=== PATIENT | female | born 1995 | race African-American/Black ===

== ENCOUNTER 2024-06-30 14:40 | Inpatient (IN) | payer OTHER, SELFPAY ==
[2024-06-30 15:04] VITALS: BP 132/80; PULSE 58; RESP 16; TEMP 36.8; O2SAT 100; BMI 28.3
[2024-06-30 15:25] LABS: MANUAL DIFF FLAG NO
[2024-06-30 15:26] LABS: Basophils Percent Auto 0.6 % (0-2); Eosinophils Absolute Auto 0.1 X10*3/uL (0.0-0.4); Eosinophils Percent Auto 1.4 % (0-4); Hemoglobin 12.3 g/dl (12.0-16.0); Lymphocytes Absolute Auto 2.7 X10*3/uL (1.2-4.9); Mean Corpuscular HGB Conc 33.2 g/dl (31.0-35.0); Mean Corpuscular Hemoglobin 31.8 pg (27.0-33.0); Mean Corpuscular Volume 95.6 fL (80.0-98.0); Mean Platelet Volume 9.7 fL (9.4-12.3); Monocytes Absolute Auto 0.4 X10*3/uL (0.1-1.2); Monocytes Percent Auto 7.7 % (2-11); Neutrophils Absolute Auto 1.7 x10*3/uL (2.0-8.3); Neutrophils Percent Auto 35.3 % (45-73); Platelet Count 184 X10*3/uL (160-400); Red Blood Count 3.87 X10*6/uL (4.20-5.50); Red Cell Distribution Width 11.9 % (11.0-16.0); White Blood Count 4.9 X10*3/uL (4.8-10.8)
[2024-06-30 16:04] LABS: Alanine Aminotransferase 19 U/L (0-31); Albumin Level 3.7 g/dL (3.5-5.0); Anion Gap 10 (12-20); Aspartate Amino Transferase 23 U/L (5-31); Bilirubin Total 0.2 mg/dL (0.0-1.0); Blood Urea Nitrogen 11 mg/dL (9-16); Calcium 8.9 mg/dL (8.4-10.2); Carbon Dioxide 24 mmol/L (22-29); Chloride 109 mmol/L (96-108); Estimated Glomerular Filt Rate > 60; Ethanol < 10 mg/dL; Glucose Random 91 mg/dL (60-115); Potassium 4.4 mmol/L (3.3-5.1); Sodium 139 mmol/L (135-145); Total Protein 6.9 g/dL (6.5-8.0)
[2024-06-30 17:19] VITALS: BP 124/75; PULSE 54; RESP 16; TEMP 37.3; O2SAT 98
[2024-06-30 17:22] LABS: Alkaline Phosphatase 47 U/L (39-117)
--- NOTE | 2024-06-30 18:12 | ED_ITS ---
HPI - Psych General Chief Complaint: Psychiatric Symptoms Stated Complaint: SI w/ plan per ems Time Seen by Provider: 06/30/24 15:52 Source: patient and EMS Mode of arrival: EMS Limitations: no limitations History of Present Illness ED Provider: Dr. Tawana Mccarty HPI Narrative: Patient comes to the emergency room complaining of suicidal ideation. Patient was picked up from work a primary care of his. According to the patient she has had increase in major depression and now she has suicidal thoughts. Patient states that she would jump off a bridge or OD on her medications. Patient states that she is compliant with her medications so far. Denies HI Related Data Home Medications ?Medication ?Instructions ?Recorded ?Confirmed escitalopram oxalate 10 mg tablet 15 mg PO DAILY 06/30/24 07/01/24 (Lexapro) hydroxyzine HCl 10 mg tablet 25 mg PO TID PRN Anxiety 06/30/24 06/30/24 Allergies Allergy/AdvReac Type Severity Reaction Status Date / Time No Known Allergies Allergy Verified 06/30/24 15:06 Review of Systems 2 Review of Systems: Constitutional : No Weight loss, No Fever, No Chills, No Night Sweats, No Fatigue, No Malaise ENT/Mouth : No Hearing loss, No Ear Pain, No Nasal Congestion, No Sinus Pain, No Hoarseness, No sore throat, No Rhinorrhea, No Swallowing Difficulty Eyes: No Eye Pain, No Swelling, No Redness, No Foreign Body, No Discharge, No Vision Changes Cardiovascular : No Chest Pain, No SOB, No Dyspnea on Exertion, No Orthopnea, No Edema, No Palpitations Respiratory : No Cough, No Sputum, No Wheezing, No Smoke Exposure, No Dyspnea Gastrointestinal : No Nausea, No Vomiting, No Diarrhea, No Constipation, No abdominal Pain, No Hematochezia, No Melena Genitourinary : no irregular bleeding, No Dysuria, No Urinary Frequency, No Hematuria, No Urinary Incontinence, No Urgency, No Flank Pain, No Urinary Flow Changes, No Hesitancy Musculoskeletal : No joint pain, No Myalgias, No Joint Swelling Skin : No Skin Lesions, No rash Neuro : No Weakness, No Numbness, No Paresthesias, No Loss of Consciousness, No Dizziness, No Headache Psych : Complaining of anxiety, depression, suicidal ideation, no HI Heme/Lymph: No Bruising, No Bleeding,No Lymphadenopathy Endocrine : No Polyuria, No Polydipsia, No Temperature Intolerance [facility] Past Medical History Medical History (Updated 07/01/24 @ 16:59 by Jayne Barnes NP) Anxiety and depression Social History Social History Household Members: None Housing: Apartment Do you presently have visiting nurse or other home services: No Patient Tobacco Use Status: Current everyday Tobacco user Smoked in Last 30 Days: Yes e-Cigarette/Vaping Use: Currently Using Frequency of e-Cigarette/Vaping Use: Daily Patient Interested in Nicotine Replacement: No Patient Given Instructions on How to Stop Smoking: No (pt declined) Second Hand Smoke Exposure: No Use of substances other than those prescribed or required for medical reasons: Yes Substance Use Type: Marijuana Substance Use Frequency: Occasionally Last Used Substance: Just Prior to Admission Currently Displaying Signs/Symptoms of Drug Intoxication Withdrawal: No Any prior treatment program specific to substance use: No Have you been hit, kicked, punched, or otherwise hurt by someone within the past year? If so, by whom?: No Do you feel safe in your current relationship?: No Current Relationship Is there a partner from a previous relationship who is making you feel unsafe now?: No Are you made to feel afraid or neglected: No Advance Directives: No Advance Directives Information Provided: No Do you have thoughts of harming others: None Do you have a plan to hurt others: No Plan Recently lost weight without trying: Yes How much weight loss: 2-13 pounds Eating poorly because of decreased appetite: Yes Nutrition screen score: 4 Nutrition Risks: No Nutritional Risk Patient : No : No Poor oral hygiene: No Physical Exam 2 Vital Signs: Vital Signs: Last Vital Signs Temp 99.1 F 07/01/24 20:00 Pulse 88 07/01/24 20:00 Resp 16 07/01/24 20:00 BP 125/62 07/01/24 20:00 Pulse Ox 99 07/01/24 20:00 O2 Del Method Room Air 07/01/24 20:00 BMI result Body Mass Index 28.3 Const: Other: Appearance: Alert. Oriented X3. No acute distress. Eyes: Pupils equal, round and reactive to light. ENT: Pharynx normal. Neck: Normal inspection. Neck supple. No lymph nodes noted. No crepitus CVS: Normal heart rate and rhythm. Pulses normal. Normal S1 and S2 Respiratory: No respiratory distress. Breath sounds normal. No Wheezing. No rales Abdomen: Soft and nontender. No rigidity. No distention. Skin: Skin warm and dry. Normal skin color. Normal skin turgor. Extremities: No lower extremity edema. No Lacerations. No Rash Neuro: Oriented X 3. No motor deficit. No sensory deficit. Moving all extremities. No slurred speech. CN 2 through 12 grossly intact Psych: calm, cooperative, normal affect Course Course Course Narrative: Patient's labs pending Care team consult pending Patient on a Section 12 Reevaluation(s) Reevaluation #1: Dr. Forbes: The patient was signed out to me by the previous emergency physician pending psychiatric placement. The patient was accepted for inpatient psychiatric care in our inpatient psychiatric unit and was admitted without incident. Medications Administered Generic Name Dose Route Start Last Admin Trade Name Freq PRN Reason Stop Dose Admin Hydroxyzine HCl 25 mg 06/30/24 22:36 07/01/24 20:32 Hydroxyzine Hcl 25 Mg Tablet PO 25 mg TID PRN Administration Anxiety Discontinued Medications Generic Name Dose Route Start Last Admin Trade Name Freq PRN Reason Stop Dose Admin Escitalopram Oxalate 10 mg 07/01/24 09:00 07/01/24 08:58 Escitalopram Oxalate 10 Mg Tablet PO 10 mg DAILY ALEAH Administration Escitalopram Oxalate 5 mg 07/01/24 09:32 07/01/24 09:56 Escitalopram Oxalate 5 Mg Tablet PO 07/01/24 09:33 5 mg ONCE ONE Administration Medical Decision Making Medical Decision Making [facility] Narrative: ETOH negative My interpretation of labs: No significant abnormality in patient's hematology and chemistry Patient is on a Section Differential Diagnosis Differential Diagnoses: The differential diagnosis associated with the presentation includes (Anxiety, depression) Admission/Observation Consideration of admission/observation: Escalation of care including admission/observation considered (Patient denies section 12, the patient may need inpatient level of care) Lab Data [facility] Lab Attestation statement: I reviewed the patient's lab results. 06/30/24 15:20 07/01/24 14:39 Labs: Lab Results 06/30/24 06/30/24 Range/Units 15:20 19:38 WBC 4.9 (4.8-10.8) X10*3/uL RBC 3.87 L (4.20-5.50) X10*6/uL Hgb 12.3 (12.0-16.0) g/dl Hct 37.0 (37.0-47.0) % MCV 95.6 (80.0-98.0) fL MCH 31.8 (27.0-33.0) pg MCHC 33.2 (31.0-35.0) g/dl RDW 11.9 (11.0-16.0) % Plt Count 184 (160-400) X10*3/uL MPV 9.7 (9.4-12.3) fL Immature Gran % (Auto) 0.0 (0.0-0.4) % Neut % (Auto) 35.3 L (45-73) % Lymph % (Auto) 55.0 H (20-40) % Mitchell % (Auto) 7.7 (2-11) % Eos % (Auto) 1.4 (0-4) % Baso % (Auto) 0.6 (0-2) % Lymph # (Auto) 2.7 (1.2-4.9) X10*3/uL Mitchell # (Auto) 0.4 (0.1-1.2) X10*3/uL Eos # (Auto) 0.1 (0.0-0.4) X10*3/uL Baso # (Auto) 0.0 (0.0-0.2) X10*3/uL Abs Immat Gran (auto) 0.00 (0.00-0.03) X10*3/uL Absolute Neuts (auto) 1.7 L (2.0-8.3) x10*3/uL Absolute Nucleated RBC 0.000 (0.0-0.012) X10*3/uL Nucleated RBC % (auto) 0.0 (0.0-0.2) /100WBC Sodium 139 (135-145) mmol/L Potassium 4.4 (3.3-5.1) mmol/L Chloride 109 H (96-108) mmol/L Carbon Dioxide 24 (22-29) mmol/L Anion Gap 10 L (12-20) BUN 11 (9-16) mg/dL Creatinine 0.88 (0.5-1.4) mg/dL Estim Creat Clear Calc 84.0 Estimated GFR > 60 Random Glucose 91 (60-115) mg/dL Calcium 8.9 (8.4-10.2) mg/dL Total Bilirubin 0.2 (0.0-1.0) mg/dL AST 23 (5-31) U/L ALT 19 (0-31) U/L Alkaline Phosphatase 47 (39-117) U/L Total Protein 6.9 (6.5-8.0) g/dL Albumin 3.7 (3.5-5.0) g/dL Beta HCG, Quant < 2 mIU/mL Urine Color Yellow Urine Appearance Clear Urine pH 7.0 (5.0-9.0) Ur Specific Nicholson 1.020 (1.005-1.025) Urine Protein Negative (Neg-Trace) mg/dL Urine Glucose (UA) Negative (Negative) mg/dL Urine Ketones Negative (Negative) mg/dL Urine Blood Negative (Negative) Urine Nitrite Negative (Negative) Ur Leukocyte Esterase Negative (Negative) Urine Test NEGATIVE (NEGATIVE) Urine Opiates Screen Not Detected (Not Detect) Ur Buprenorphine Scrn Not Detected (Not Detect) ng/mL Ur Oxycodone Screen Not Detected (Not Detect) ng/mL Urine Methadone Screen Not Detected (Not Detect) ng/mL Urine Fentanyl Screen Not Detected (Not Detect) Ur Barbiturates Screen Not Detected (Not Detect) Ur Phencyclidine Scrn Not Detected (Not Detect) Ur Amphetamines Screen Not Detected (Not Detect) U Benzodiazepines Scrn Not Detected (Not Detect) Urine Cocaine Screen Not Detected (Not Detect) U Marijuana (THC) Screen POSITIVE H (Not Detect) Ethyl Alcohol < 10 mg/dL Critical Care Time Critical Care Time Critical Care Time: Yes Total Critical Care Time: 35 Attestation: I have personally provided critical care time. Time includes review of lab data, radiology results, discussion with consultants, and monitoring for potential decompensation. Intervention performed as documented. Discharge Plan Discharge Clinical Impression: Anxiety with depression Patient Disposition: Admitted As Inpatient Interventions: Admission Worksheet (ED) Last Done: 07/01/24 13:20 Discharge Date/Time: 07/01/24 13:44
[2024-06-30 18:55] LABS: HCG Quantitative < 2 mIU/mL
--- OUTSIDE RECORDS SUMMARY | 2024-06-30 19:26 | XMS_ITS | Clinical Summary ---
Author Organization [facility] Address [address] [place] [address] Care Team Providers Care Hotel Administrative Assistant Name Role Phone Unavailable Primary Care Provider Unavailabl e Source Comments PLEASE NOTE, if this patient is a minor, it may be UNLAWFUL to discuss sensitive information that is contained in these records (such as FAMILY PLANNING, MENTAL HEALTH or SUBSTANCE ABUSE) with the minor patient's parent or other person without the patient's specific authorization.[facility] Encounters Date Type Department Care Team Description 06/30/2024 11:45 AM EDT / Visits [address] [phone] Emely Mckeon LMHC Generalized anxiety disorder (Primary Dx) 06/25/2024 8:30 AM EDT / Visits [address] [phone] Emely Mckeon LMHC Generalized anxiety disorder (Primary Dx) from Last 3 Months Social History Tobacco Use Types Packs/Day Years Used Date Smoking Tobacco: Never Assessed Financial Resource Strain Answer Date R ecorded Financial Resource Strain 0 2023 Stress Answer Date Recorded Stress 0 11/14/2023 Physical Activity Answer Date Recorded Physical Activity 0 11/14/2023 Food Insecurity Answer Date Recorded Food 0 11/14/2023 Transportation Needs Answer Date Record ed Transportation 0 11/14/2023 Housing Stability Answer Date Recorded Housing 0 11/14/2023 Safety and Environment Answer Date Mane rded Safety 0 11/14/2023 Utilities Answer Date Recorded Utilities 0 11/14/2023 Comments Unknown Sex and Gender Information Value Date Recorded Sex Assigned at Not on file Legal Sex Female 6:17 AM PDT Gender Identity Not on file Sexual Orientation Not on file Plan of Treatment Upcoming Encounters Date Type Department Care Team (Late st Contact Info) Description 07/14/2024 8:30 AM EDT / Visits [address] [place] [phone] Emely Mckeon, [facility] [address] [place] [address] Health Maintenance Due Date Last Done Comments Anxiety Screening 1995 HPV Screening 1995 Hepatitis C Screening 1995 Pap + HPV 1995 HIV Screening 09/13/2010 Relationship Safety Screening/Counseling 09/13/2010 Hypertension Screening (#1) 09/13/2013 Cervical Cancer Screening 09/13/2016 Pap Smear 09/13/2016 [id number] ( season) 2023 12/19/2022, 12/12/2020, 12/11/2020, Additional history exists Imm-Influenza (#1) 2023 01/03/2023, 1 , 02/11/2022, Additional history exists Alcohol and Drug Screen 03/11/2024 Depression Annual Screen 03/11/2024 Tobacco Screening 06/25/2025 06/25/2024 Imm-DTaP/Tdap/Td (8 - Td or Tdap) 07/08/2030 07/08/2020, 08/04/2015, 11/27/2006, Additional history exists Imm-Hepatitis B Completed 05/11/2017, 08/10, 08/04/2015, Additional history exists Cervical Ablation/Cold-Knife Conization Discontinued Cervical Cryotherapy Discontinued Colposcopy Discontinued Endometrial Biopsy Discontinued Excision/Leep Discontinued HPV Genotyping Discontinued Vaginal Pap Discontinued Vulvoscopy Discontinued Insurance [facility] Member Subscriber Plan / Payer (Ef fective 2023-Present) Name:JanedarrenJesus Relation to Subscriber:Self Name:JanedarrenJesus Payer ID:[id number] Type:Indemnity Address: [address] [place] [id number]
--- OUTSIDE RECORDS SUMMARY | 2024-06-30 19:26 | XMS_ITS | Clinical Summary ---
Author Organization 175 [facility] Address [address] [place] [address] Phone Care Team Providers Care Air Analysis Technician Name Role Phone Toan Liu MD Primary Care Provider [phone] Allergies No known active allergies Medications escitalopram (LEXAPRO) 10 mg tablet Take 1.5 tablets (15 mg total) by mouth 1 (one) time each day. Take 1.5 pill with breakfast 45 each 5 5 10/27/19 25 Active hydrOXYzine HCL (ATARAX) 25 mg tablet Take 1 tablet (25 mg total) by mouth 3 (three) times a day if needed for anxiety (depression). 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 She was counseled regarding the implications of PCOS including irregular ovulation which can lead to endometrial hyperplasia or malignancy, and also subfertility or infertility. 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 I recommended weight loss to help with resumption of regular menses, but in the meantime, reviewed hormonal options for menstrual regulation/endometrial protection. She was most interested in cyclic provera. She was instructed on use, Rx given today. Irregular menses 09/05/2021 Overview (12/25/2023): Last Assessment & Plan: Urine hCG negative. Discussed normal frequency and length of menses Counseled on the effects of stress, changes in sleep, diet, and exercise on the endocrine system GC/CT done today to r/o STI TSH, prolactin and testosterone ordered Pelvic ultrasound ordered Discussed with patient potential causes of abnormal bleeding including , infection, trauma, anovulation, polyps, fibroids, coagulation defects, hyperplasia, and malignancies and importance of follow-up. She will return in 3-4 weeks to discuss results and treatment options. Molluscum contagiosum 08/21/2016 Overview (12/25/2023): Molluscum contagiosum 08/25 left buttock Anxiety and depression Encounters Date Type Department Care Team Description 06/03/2024 3:45 PM EDT Office Visit Internal Medicine [address] [phone] Jaquan Castrejon MD Syncope, unspecified syncope type (Primary Dx); Contusion of scalp, initial encounter 06/01/2024 Telephone Internal Medicine - [address] [phone] Toan Liu MD Khan; Letter 04/29/2024 10:45 AM EST Office Visit Internal Medicine [address] [phone] Toan Liu MD Anxiety and depression (Primary Dx) 04/23/2024 2:30 PM EST Office Visit Obstetrics & Gynecology - [address] [phone] Racquel Marsh CNM Encounter for well woman exam with routine gynecological exam (Primary Dx); Late menses; Screening breast examination; Body integrity dysphoria; Screen for STD (sexually transmitted disease); Polycystic ovarian syndrome; Severe episode of recurrent major depressive disorder, without psychotic features (CMS/HCC V24, CMS/HCC V28) 04/20/2024 10:25 AM EST - 04/20/2024 5:11 PM EST Emergency [facility] Emergency [address] [place] [address] Jasen Maldonado MD Major depressive disorder, recurrent episode, moderate (CMS/HCC V24, CMS/[facility] V28) (Primary Dx); Acute depression Discharge Disposition: Home or Self Care 04/17/2024 Telephone Internal Medicine - [place] [address] [facility] [address] [place] [address] Toan Liu MD Khan: Referral from Last 3 Months Immunizations Name Administration Dates Next Due COVID-19 (Pfizer/Comirnaty) 12yo and older 12/19/2022 DTP 06/23/1996,01/24/1996,1995 DTaP (Infanrix) 6wks to less than 7yo 10/02/1999 [id number] (Pentacel) 2mo to less than 5yo 06/23/1996,01/24/1996,1995 HPV, Quadrivalent 05/16/2011,12/14/2010,05/11/19 11 Hepatitis B Pediatric (Enger ix B; Recombivax HB) to less than 20 yo 08/30/1999,1995,1995 Hib (HbOC) 06/23/1996,01/24/1996,1995 IPV Inactivated polio (Ipol) 6wks and older 10/02/1999 Influenza Quadrivalent, 0.5m l, preservative free (Fluarix; FluLaval; Fluzone) ages 6mo and older (Afluria) 3yo and older 01/03/2023 Influenza trivalent, 0.5mL, preservative free (Fluarix; FluLaval; Fluzone) ages 6mo and older (Afluria) 3 years and older 01/10/2017,05/10/2010,12/29/2007 Influenza trivalent, with pr eservative (Fluzone; Afluria) 6mo and older 01/10/2017,05/10/2010,12/29/2007 Influenza, Unspecified 12/31/2022 MMR, measles mumps and rubel la Live (Priorix; M-M-R II) 12mo and older 07/15/2020,10/02/1999,08/30/1999 Meningococcal MCV4P 05/12/2014,05/16/2011 Moderna SARS-CoV-2 COVID-19, mRNA, LNP-S, preservative free 11/11/2020 OPV 06/23/1996,01/24/1996,1995 PPD Test 01/16/2017, 7,05/10/2010,09/16 Pfizer SARS-CoV-2 COVID-19, mRNA, LNP-S, preservative free 12/19/2022,12/11/2020,11/11/2020 Td Tetanus diptheria (Tdvax) 7yo and older 07/08/2020 Tdap Tetanus diptheria acell ular pertussis (Boostrix; Adacel) 7yo and older 11/27/2006 Varicella live (Varivax) 12m o and older 07/06/2011,12/23/1996 Surgical History Surgery Date Site/Laterality Comments OTHER SURGICAL HISTORY PROCEDURE: DENIES PREVIOUS SURGERY Medical History Medical History Date Comments Pulmonary embolus, right (CM S/HCC V24, CMS/HCC V28) 2017 DX:Pulmonary embolus, right (HCC); COMMENT: while on OCPS Adjustment disorder with depressed mood 05/11/19 11 DX:Adjustment disorder with depressed mood HSV-2 infection DX:HSV-2 infecti on Female infertility Depression Polycystic ovary syndrome Recurrent loss, an tepartum condition or complication Family History Medical History Relation Name Comments No Known Problems Brother Alcohol abuse Father Dad Drug abuse Father Dad Cancer Maternal Grandfather Gazzi Throat cancer Maternal Grandfather Gazzi smoker Asthma Maternal Grandmother Grandma Cancer Maternal Grandmother Grandma Mental illness Maternal Grandmother Grandma Cystic fibrosis Mother Mom Miscarriages / Stillbirths Mother Mom Other: fibroids Mother Mom Cancer Paternal Grandfather Gazzi Throat cancer Paternal Grandfather Gazzi smoker No Known Problems Paternal Grandmother No Known Problems Sister x1 2 other si sters with dad side Relation Name Status Comments Brother Alive 12/22/[address] [place] Father Dad Alive Maternal Grandfather Gazzi Maternal Grandmother Grandma Mother Mom Alive 3/4/74 [address] Paternal Grandfather Chase Paternal Grandmother Alive Sister x1 Alive Social History Tobacco Use Types Packs/Day Years Used Date Smoking Tobacco: Every Day Pipe Smokeless Tobacco: Never Tobacco Cessation:Ready to Q uit: Not Asked; Counseling Given: Not Answered Alcohol Use Standard Drinks/Week Comments Yes 3 (1 standard drink = 0.6 oz pur e alcohol) Housing Instability Answer Date Recorde d Are you worried that in the next 2 months you may not have stable housing? No 04/20/2024 Food Access & Nutrition Answer Date Rec orded Do you have access to a vari ety of food including fruits and vegetables? No 04/20/2024 Access to Healthcare Answer Date Record ed Within the last 3 months, ho w many times did you visit the emergency department for your medical care? 0 04/20/2024 Health Literacy Answer Date Recorded How often do you need to hav e someone help you when you read instructions, pamphlets, or other written material from your doctor or pharmacy? Never 04/20/2024 Caregiver: How often do you need to have someone help you when you read instructions, pamphlets, or other written material from your doctor or pharmacy? Not on file 04/20/2024 Financial Risk Answer Date Recorded How hard is it for you to pa y for the very basics like food, housing, medical care, and air conditioning / heating? Very hard 04/20/2024 Transportation Answer Date Recorded Has the lack of transportati on kept you from meetings, work, or from getting things needed for daily living? No Has the lack of transportati on kept you from medical appointments or from getting medications? No 04/20/2024 Social Isolation Answer Date Recorded How often do you feel lonely or isolated from th ose around you? Always 04/20/2024 Food Risk Answer Date Recorded Within the past 12 months we worried whether our food would run out before we got money to buy more. Sometimes true 025 Within the past 12 months th e food we bought just didn't last and we didn't have money to get more. Often true 04/20/2024 Dependent Care Answer Date Recorded Do you need help finding or paying for care for your loved ones. For example, child care teacher or elderly care for an older adult? No 04/20/2024 Education Answer Date Recorded Do you think completing more education or training, like finishing a GED, going to college, or learning a trade, would be helpful for you? Yes 04/20/2024 Employment and Income Answer Date Recor ded During the last four weeks, have you been actively looking for work? No 04/20/2024 Living Situation Answer Date Recorded What is your living situation? 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[place] Not on file Not on file Not on file [employer] WORK[employer] ( 2 jobs) Not on file Not on file Not on file Obstetrics History Para Term AB IAB SAB Ectopic Multiple Livin g Live Births 1 0 0 0 1 0 1 0 0 0 0 Date Outcome GA Total Labor Labor/2nd/3rd Weight Sex Type Anes PTL Aundrea A1 A5 Name Clin 08/2022 SAB Last Filed Vital Signs Vital Sign Reading Time Taken Comments Blood Pressure 110/68 06/03/2024 3:56 PM EDT Pulse 88 06/03/2024 3:56 PM EDT Temperature 36.8 ??C (98.3 ??F) 06/03/2024 3:56 PM ED T Respiratory Rate 16 04/20/2024 10:20 AM EST Oxygen Saturation 98% 06/03/2024 3:56 PM EDT Inhaled Oxygen Concentration - - Weight 55.6 kg (122 lb 9.6 oz) 06/03/2024 3:56 P M EDT Height 154.9 cm (5' 1 ) 04/23/2024 2:58 PM EST Body Mass Index 23.17 04/23/2024 2:58 PM EST Plan of Treatment Upcoming Encounters Date Type Department Care Team (Late st Contact Info) Description 08/31/2024 1:00 PM EDT Office Visit Internal Medicine - [address] [phone] Toan Liu MD [address] [phone] Health Maintenance Due Date Last Done Comments Pneumococcal Vaccine: Pediatrics (0 to 5 Years) and At-Risk Patients (6 to 64 Years) (1 of 2 - PCV) 09/13/2014 Hepatitis C Screening 02/17/2022 COVID-19 Vaccine ( - season) 2023 12/19/2022, 12/19/2022, 07/05/2021, Additional history exists Influenza Vaccine (Season Ended) 2024 01/03/2023, 12/31/2022, 01/10/2017, Additional history exists Cervical Cancer Screening: Pap Smear 04/11/2025 04/11/2022, 04/11/2022, 03/30/2022, Additional history exists Depression Screening 04/20/2025 04/20/2024 Social Influencers of Health Screening 04/20/2025 04/20/2024 Cholesterol Screening (Lipid Panel) 11/15/2027 11/14/2022 DTaP,Tdap,and Td Vaccines (7 - Td or Tdap) 07/08/2030 07/08/2020, 11/27/2006, 10/02/1999, Additional history exists HIB Vaccines Aged Out 06/23/1996, 06/09, 01/24/1996, Additional history exists No longer eligible based on patient's age to complete this topic Hepatitis B Vaccines Completed 08/30/1999, 1995, 1995 IPV Vaccines Completed 10/02/1999, 06/09, 06/23/1996, Additional history exists HPV Vaccines Completed 05/16/2011, 08/2010, 05/10/2010 Varicella Vaccines Completed 07/06/2011, 12/23/1996 Meningococcal ACWY Vaccine Completed 05/12/2014, MMR Vaccines Completed 07/15/2020, 09/09, 08/30/1999 HIV Screening Completed 12/20/2023 Hepatitis A Vaccines Aged Out No long er eligible based on patient's age to complete this topic Meningococcal B Vaccine Aged Out No l onger eligible based on patient's age to complete this topic RSV Immunization Patients Under 20 months Aged Out No longer eligible based on patient's age to complete this topic Procedures Procedure Name Priority Date/Time Associated Diagnosis Comments CHLAMYDIA TRACHOMATIS AND NEISSERIA GONORRHOEAE PCR Routine 04/23/2024 3:28 PM EST Encounter for well woman exam with routine gynecological exam Screen for STD (sexually transmitted disease) POC , URINE DIAGNOSTIC Routine 04/23/2024 3:08 PM EST Late menses ECG ANNOTATED 04/22/2024 POC , URINE DIAGNOSTIC STAT 04/20/2024 11:09 AM EST METHADONE SCREEN, URINE STAT 04/20/2024 10:48 AM EST PHENCYCLIDINE, URINE STAT 04/20/2024 10:48 AM EST BUPRENORPHINE SCREEN, URINE STAT 04/20/2024 10:48 AM EST DRUG ABUSE SCREEN 8A PANEL, URINE STAT 04/20/2024 10:48 AM EST ECG 12-LEAD STAT 04/20/2024 10:31 AM EST CBC WITH AUTO DIFFERENTIAL STAT 04/20/2024 10:27 AM EST SALICYLATE LEVEL STAT 04/20/2024 10:2 7 AM EST ACETAMINOPHEN LEVEL STAT 04/20/2024 1 0:27 AM EST ETHANOL STAT 04/20/2024 10:27 AM EST COMPREHENSIVE METABOLIC PANEL STAT 04/20/2024 10:27 AM EST CBC AND DIFFERENTIAL STAT 04/20/2024 10:27 AM EST LIPID PANEL Routine 11/14/2022 HM HPV Routine 04/11/2022 from Last 3 Months or Most Recently Relevant to Health Maintenance Results * Chlamydia trachomatis and Neisseria gonorrhoeae molecular study (04/23/2024 3:28 PM EST) Pathologist [facility] Neisseria gonorrhoeae PCR Negative Negative LAB MOLECULAR DIAGNOSTICS METHOD 04/24/2024 9:19 AM EST [facility] Chlamydia trachomatis PCR Negative Negative LAB MOLECULAR DIAGNOSTICS METHOD 04/24/2024 9:19 AM EST [facility] Swab Cervix uteri structure / Unknown Non-blood Collection / Unknown 04/23/2024 3:28 PM EST 04/23/2024 3:55 PM EST [facility] LAB MICROBIOLOGY - GENERAL OR DERABLES Final Result [facility] [address] [place] [address], * POC , urine manually resulted (04/23/2024 3:08 PM EST) Only the most recent of2 resultswithin the time period is included. Pathologist [facility] HCG, Ur POC Negative Negative POC hCG Int QC Pass? Yes Yes Urine Urine specimen obtained by clean catch procedure / Unknown 04/23/2024 3:08 PM EST [facility] POINT OF CARE TEST ENTER/EDIT ORDERABLES Final Result * ECG-Annotated (04/22/2024) Provider Onbase MD ECG ORDERABLES Final Result * (ABNORMAL) Drug abuse screen 8a panel, urine (04/20/2024 10:48 AM EST) Pathologist [facility] Amphetamine Screen, Ur Negative Negative LAB CHEMISTRY METHOD 11:52 AM EST [facility] Comment:Certain OTC medicati ons containing ephedrine, phenylephrine, pseudoephedrine and phenylpropanolamine can cause false positive results. Barbiturate Screen, Ur Negative Negative LAB CHEMISTRY METHOD 5 11:52 AM EST [facility] Benzodiazepine Screen, Ur Negative Negative LAB CHEMISTRY METHOD 5 11:52 AM [facility] Cocaine Screen, Ur Negative Negative LAB CHEMISTRY METHOD 5 11:52 AM [facility] Opiate Screen, Ur Negative Negative LAB CHEMISTRY METHOD 5 11:52 AM [facility] Cannabinoid (THC) Screen, Ur Positive(A ) Negative LAB CHEMISTRY METHOD 5 11:52 AM [facility] Comment:Specimens from patie nts taking pantoprazole sodium (Protonix) have been shown to produce false positive results. Oxycodone Screen, Ur Negative Negative LAB CHEMISTRY METHOD 5 11:52 AM [facility] Fentanyl, Ur Negative Negative LAB CHEMISTRY METHOD 5 11:52 AM [facility] Urine Urine specimen obtained by clean catch procedure / Unknown Non-blood Collection / Unknown 04/20/2024 10:48 AM EST 04/20/2024 11:[address] [facility] - 04/20/2024 11:52 AM EST Assay cutoffs: Amphetamines ? 1000 ng/mL Barbiturates ?200 ng/mL Benzodiazepines ?? 200 ng/mL Cocaine ? 300 ng/mL Fentanyl ?1 ng/mL Opiates ? 300 ng/mL Oxycodone ? 100 ng/mL THC ?50 ng/mL Semi-quantitative assay for screening purposes only. Unconfirmed screening result should not be used for non-medical purposes. *ALTERNATE METHOD CONFIRMATION DONE UPON REQUEST ONLY* us Jasen Maldonado MD LAB URINE ORDERABLES Tatyana saucedo Result [facility] [address] [place] [address], * Buprenorphine screen, urine (04/20/2024 10:48 AM EST) Buprenorphine Screen Urine Negative Negative LAB CHEMISTRY METHOD 04/20/2024 11:52 AM EST [facility] Urine Urine specimen obtained by clean catch procedure / Unknown Non-blood Collection / Unknown 04/20/2024 10:48 AM EST 04/20/2024 11:07 AM EST Narrative [facility] - 04/20/2024 11:52 AM EST Assay cutoff 5 ng/mL Semi-quantitative assay for screening purposes only. Unconfirmed screening result should not be used for non-medical purposes. *ALTERNATE METHOD CONFIRMATION DONE UPON REQUEST ONLY* us Jasen Maldonado MD LAB URINE ORDERABLES Tatyana l Result Performing Organization Address [facility]/ZIP Co de Phone Number [facility] [address] [place] [address], [place] [phone] * Methadone, urine (04/20/2024 10:48 AM EST) Methadone Screen, Urine Negative Negative LAB CHEMISTRY METHOD 04/20/2024 11:52 AM EST [facility] Comment: Assay cutoff 300 ng/mL Semi-quantitative assay for screening purposes only. Unconfirmed screening result should not be used for non-medical purposes. *ALTERNATE METHOD CONFIRMATION DONE UPON REQUEST ONLY* Urine Urine specimen obtained by clean catch procedure / Unknown Non-blood Collection / Unknown 04/20/2024 10:48 AM EST 04/20/2024 11:07 AM EST us Jasen Maldonado MD LAB URINE ORDERABLES Tatyana l Result [facility] [address] [place] [address], [place] [phone] * Phencyclidine, urine (04/20/2024 10:48 AM EST) PCP Scrn, Ur Negative Negative LAB CHEMISTRY METHOD 04/20/2024 11:52 AM EST [facility] Comment: Assay cutoff 25 ng/mL Semi-quantitative assay for screening purposes only. Unconfirmed screening result should not be used for non-medical purposes. *ALTERNATE METHOD CONFIRMATION DONE UPON REQUEST ONLY* Urine Urine specimen obtained by clean catch procedure / Unknown Non-blood Collection / Unknown 04/20/2024 10:48 AM EST 04/20/2024 11:07 AM EST us Jasen Maldonado MD LAB URINE ORDERABLES Tatyana l Result [facility] [address] [place] [address], [place] [phone] * ECG 12 lead (04/20/2024 10:31 AM EST) Pathologist [facility] Ventricular Rate ECG 53 BPM GEMUSE Atrial Rate 53 BPM GEMUSE P-R Interval 186 ms GEMUSE QRS Duration 88 ms GEMUSE Q-T Interval 406 ms GEMUSE QTc 380 ms GEMUSE P Wave [place] 40 degrees GEMUSE R [place] 76 degrees GEMUSE T [place] 48 degrees GEMUSE ECG Interpretation Sinus bradycardia with sinus arrhythmia Otherwise normal ECG No previous ECGs available Confirmed by Jorge HOLLINGSWORTH JAMES ([id number]) on 04/20/2024 6:34:22 PM GEMUSE 04/20/2024 10:3 1 AM EST 04/20/2024 6:34 PM EST Jasen Maldonado MD ECG ORDERABLES Final Res ult GEMUSE * CBC auto differential (04/20/2024 10:27 AM EST) Pathologist [facility] WBC 5.4 4.8 - 10.8 K/[facility] LAB HEMETOLOGY METHOD 04/20/2024 10:50 AM EST [facility] RBC 4.30 3.80 - 4.80 M/[facility] LAB HEMETOLOGY METHOD 04/20/2024 10:50 AM [facility] Hemoglobin 13.8 11.5 - 16.0 g/dL LAB HEMETOLOGY METHOD 04/20/2024 10:50 AM [facility] Hematocrit 41.4 35.0 - 47.0 % LAB HEMETOLOGY METHOD 04/20/2024 10:50 AM [facility] MCV 95.6 79.0 - 98.0 FL LAB HEMETOLOGY METHOD 04/20/2024 10:50 AM [facility] MCH 31.9 27.0 - 32.0 pcg LAB HEMETOLOGY METHOD 04/20/2024 10:50 AM [facility] MCHC 33.3 32.0 - 37.0 g/dL LAB HEMETOLOGY METHOD 04/20/2024 10:50 AM [facility] RDW 11.9 11.0 - 15.0 % LAB HEMETOLOGY METHOD 04/20/2024 10:50 AM [facility] Platelets 241 130 - 400 K/mcL LAB HEMETOLOGY METHOD 04/20/2024 10:50 AM [facility] MPV 9.6 7.0 - 11.0 FL LAB HEMETOLOGY METHOD 04/20/2024 10:50 AM [facility] NRBC 0.0 <1.0 % LAB HEMETOLOGY METHOD 04/20/2024 10:50 AM [facility] NRBC Absolute 0.00 <0.10 K/mcL LAB HEMETOLOGY METHOD 04/20/2024 10:50 AM [facility] Neutrophils Relative 40.6 % LAB HEMETOLOGY METHOD 04/20/2024 10:50 AM [facility] Lymphocytes Relative 49.3 % LAB HEMETOLOGY METHOD 04/20/2024 10:50 AM [facility] Monocytes Relative 8.2 % LAB HEMETOLOGY METHOD 04/20/2024 10:50 AM EST [facility] Eosinophils Relative 1.3 % LAB HEMETOLOGY METHOD 04/20/2024 10:50 AM [facility] Basophils Relative 0.4 % LAB HEMETOLOGY METHOD 04/20/2024 10:50 AM [facility] Immature Granulocytes Relative 0.2 % LAB HEMETOLOGY METHOD 04/20/2024 10:50 AM EST [facility] Neutrophils Absolute 2.18 1.50 - 7.00 K/mcL LAB HEMETOLOGY METHOD 04/20/2024 10:50 AM EST [facility] Lymphocytes Absolute 2.65 1.00 - 5.00 K/mcL LAB HEMETOLOGY METHOD 04/20/2024 10:50 AM EST [facility] Monocytes Absolute 0.44 0.20 - 1.00 K/mcL LAB HEMETOLOGY METHOD 04/20/2024 10:50 AM EST [facility] Eosinophils Absolute 0.07 0.00 - 0.50 K/mcL LAB HEMETOLOGY METHOD 04/20/2024 10:50 AM EST [facility] Basophils Absolute 0.02 0.00 - 0.20 K/mcL LAB HEMETOLOGY METHOD 04/20/2024 10:50 AM [facility] Immature Granulocytes Absolute 0.01 0.00 - 0.03 K/mcL LAB HEMETOLOGY METHOD 04/20/2024 10:50 AM EST [facility] Blood Venous blood specimen / Unknown Venipuncture / Unknown 04/20/2024 10:27 AM EST 04/20/2024 10:44 AM EST us Jasen Maldonado MD LAB BLOOD ORDERABLES Tatyana sheryl Result [facility] [address] [place] [address], [place] [phone] * Ethanol (04/20/2024 10:27 AM EST) Ethanol Level <3 0 - 10 mg/dL LAB CHEMISTRY METHOD 04/20/2024 11:11 AM EST [facility] Blood Venous blood specimen / Unknown Venipuncture / Unknown 04/20/2024 10:27 AM EST 04/20/2024 10:44 AM EST Jasen Maldonado MD LAB BLOOD ORDERABLES Tatyana l Result Performing Organization Address City/[facility]/ZIP Co de Phone Number [facility] [address] [place] [address], [place] [phone] * (ABNORMAL) Acetaminophen level (04/20/2024 10:27 AM EST) Acetaminophen Level <2.0(L) 10.0 - 30.0 mcg/mL LAB CHEMISTRY METHOD 04/20/2024 11:17 AM EST [facility] Blood Venous blood specimen / Unknown Venipuncture / Unknown 04/20/2024 10:27 AM EST 04/20/2024 10:44 AM EST us Jasen Maldonado MD LAB BLOOD ORDERABLES Tatyana l Result Performing Organization Address City/[facility]/ZIP Co de Phone Number [facility] [address] [place] [address], [place] [phone] * (ABNORMAL) Salicylate level (04/20/2024 10:27 AM EST) Salicylate Level <1.7(L) 2.0 - 29.0 mg/dL LAB CHEMISTRY METHOD 04/20/2024 11:11 AM EST [facility] Blood Venous blood specimen / Unknown Venipuncture / Unknown 04/20/2024 10:27 AM EST 04/20/2024 10:44 AM EST us Jasen Maldonado MD LAB BLOOD ORDERABLES Tatyana saucedo Result [facility] [address] [place] [address], * Comprehensive metabolic panel (04/20/2024 10:27 AM EST) Sodium 139 133 - 145 mmol/L LAB CHEMISTRY METHOD 04/20/2024 11:11 AM [facility] Potassium 3.8 3.5 - 5.5 mmol/L LAB CHEMISTRY METHOD 04/20/2024 11:11 AM [facility] Chloride 107 96 - 110 mmol/L LAB CHEMISTRY METHOD 04/20/2024 11:11 AM [facility] CO2 26 21 - 32 mmol/L LAB CHEMISTRY METHOD 04/20/2024 11:11 AM [facility] Anion Gap 6 3 - 11 LAB CHEMISTRY METHOD 04/20/2024 11:11 AM [facility] Glucose 92 70 - 100 mg/dL LAB CHEMISTRY METHOD 04/20/2024 11:11 AM [facility] BUN 11 5 - 25 mg/dL LAB CHEMISTRY METHOD 04/20/2024 11:11 AM [facility] Creatinine 0.97 0.50 - 1.10 mg/dL LAB CHEMISTRY METHOD 04/20/2024 11:11 AM [facility] eGFR 82 >=60 mL/min/1. 73m2 LAB CHEMISTRY METHOD 04/20/2024 11:11 AM [facility] Comment:Calculation based on the??Chronic Kidney Disease Epidemiology Collaboration (CKD-EPI) equation refit??without adjustment for race. BUN/Creatinine Ratio 11.3 LAB CHEMISTRY METHOD 04/20/2024 11:11 AM [facility] Calcium 9.2 8.5 - 10.5 mg/dL LAB CHEMISTRY METHOD 04/20/2024 11:11 AM [facility] AST (SGOT) 17 10 - 42 unit/L LAB CHEMISTRY METHOD 04/20/2024 11:11 AM [facility] ALT (SGPT) 19 10 - 60 unit/L LAB CHEMISTRY METHOD 04/20/2024 11:11 AM [facility] Alkaline Phosphatase 46 42 - 121 unit/L LAB CHEMISTRY METHOD 04/20/2024 11:11 AM [facility] Total Protein 7.4 6.0 - 8.0 g/dL LAB CHEMISTRY METHOD 04/20/2024 11:11 AM [facility] Albumin 3.6 3.2 - 5.0 g/dL LAB CHEMISTRY METHOD 04/20/2024 11:11 AM [facility] Total Bilirubin 0.5 0.0 - 1.4 mg/dL LAB CHEMISTRY METHOD 04/20/2024 11:11 AM [facility] Blood Venous blood specimen / Unknown Venipuncture / Unknown 04/20/2024 10:27 AM EST 04/20/2024 10:44 AM EST Jasen Maldonado MD LAB BLOOD ORDERABLES Tatyana l Result [facility] [address] [place] [address], * Lipid panel (11/14/2022) [facility] LDL/HDL Ratio 2 0 - 4 Triglycerides 28 0 - 150 mg/dL Cholesterol 110 0 - 200 mg/dL HDL 54 >=40 mg/dL LDL Cholesterol 51 0 - 100 mg/dL Blood Venous blood specimen / Unknown Historical Provider LAB BLOOD ORDERABLES Tatyana l Result * Cervical Cancer Screening: HPV (04/11/2022) [facility] Cervical Cancer Screening: HPV Negative, Abstracted Historical Provider HEALTH MAINTENANCE Final Result from Last 3 Months or Most Recently Relevant to Health Maintenance Insurance Care Teams Air Analysis Technician Relationship Specialty Start Date End Date Toan Liu MD [address] [place] [address] [address] [place] [address] PCP - General Internal Medicine 01/28/24
--- OUTSIDE RECORDS SUMMARY | 2024-06-30 19:26 | XMS_ITS | Encounter Summary ---
Author Organization [facility] Address [address] [place] [address] Care Team Providers Care Windows And Doors Installer Name Role Phone Unavailable Primary Care Provider Unavailabl e Encounter Details Date Type Department Care Team (Late st Contact Info) Description 06/30/2024 11:45 AM EDT /MH Visits [facility] [address] [place] [phone] Emely Mckeon [facility] [address] [place] [address] Generalized anxiety disorder (Primary Dx) Social History Tobacco Use Types Packs/Day Years [...] on file Sexual Orientation Not on file documented as of this encounter Progress Notes * ROBBIE Judge - 06/30/2024 1:51 PM EDT The following visit was conducted via Audio only. I educated the patient/guardian on the terms of telehealth and the patient verbally consented to this telemedicine visit. The patient was identified using their Name, and [facility] ID. I identified myself as ROBBIE Judge from [facility]. It was conducted in a private space to protect HIPPA sensitive information. Precautions were taken to provide confidentiality and security and patient was made aware of privacy considerations. The patients location was obtained and is Other location: Please specify Secure location at work site The patient/guardian was notified that the services were being provided from [facility] Location. The patient/guardian was notified how they can see a clinician in-person in the event of an emergency or if otherwise needed. Visit START TIME 1145 END TIME 1205 Wire Repairer used during visit? No TOTAL TIME IN SESSION: 20 min START/ END TIME: 1145 - 1205 RISK ASSESSMENT: PASSIVE SI/HI OTHER PEOPLE PRESENT IN SESSION: NONE PROGRESS SINCE LAST SESSION TOWARD GOALS/OBJECTIVES: As needed counseling session. Reports that shewas in class and started to feel very anxious. Has been feeling triggered by recent events. Feels that depression and anxiety have been increasing. Did not directly state SI but reports that she doeswant a pause, feels exhausted, has passive SI thoughts. NEW CONCERNS TODAY: NONE MOOD: ANXIOUS AFFECT: ANXIOUS SPEECH: WNL THOUGHT PROCESSES: CIRCUMSTANTIAL ORIENTATION: WNL MEDICAL CONCERNS: NOTHING NEW COMMENT: SUBSTANCE USE: NO HX INTERVENTIONS: Going to [facility] crisis for further evaluation and treatment options. Will contact t/w will follow up plan once she has spoken with crisis team. PERSON'S RESPONSE TO INTERVENTIONS: COOPERATIVE PLAN FOR NEXT SESSION: Crisis, potentially looking in to [place] with [place] at her employment DATE OF NEXT SESSION: Two weeks CLIENT WILL: OTHER crisis eval documented in this encounter Plan of Treatment Upcoming Encounters Date Type Department Care Team ([facility] Contact Info) Description 07/14/2024 8:30 AM EDT / Visits [address] [phone] Emely Mckeon LM[facility] [address] [place] [phone] documented as of this encounter Visit Diagnoses Diagnosis Generalized anxiety disorder- Primary documented in this encounter
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
[2024-06-30 19:56] LABS: Appearance Urine Clear; Color Urine Yellow; Glucose Urine UA Negative (Negative); Leukocyte Esterase Urine Negative (Negative); Nitrite Urine Negative (Negative); Urine Blood Negative (Negative); Urine Ketones Negative (Negative); Urine Protein Negative (Neg-Trace)
[2024-06-30 19:59] LABS: UPreg QC Valid YES; Urine Pregnancy NEGATIVE (NEGATIVE)
[2024-06-30 20:06] LABS: Amphetamine Screen Urine Not Detected (Not Detect); Barbiturates, Urine Not Detected (Not Detect); Benzodiazepines Screen Urine Not Detected (Not Detect); Buprenorphine Scr Not Detected (Not Detect); Cannabinoid Screen Urine POSITIVE (Not Detect); Cocaine Screen Urine Not Detected (Not Detect); Fentanyl, urine Not Detected (Not Detect); Methadone Screen, Urine Not Detected (Not Detect); Opiate Screen Urine Not Detected (Not Detect); Oxycodone Screen Urine Not Detected (Not Detect); Phencyclidine Screen Urine Not Detected (Not Detect)
--- NOTE | 2024-07-01 | ECG_ITS ---
Test Reason : check qt Blood Pressure : */* mmHG Vent. Rate : 55 BPM Atrial Rate : 55 BPM P-R Int : 182 ms QRS Dur : 74 ms QT Int : 412 ms P-R-T Axes : 50 77 53 degrees QTcB Int : 394 ms Sinus bradycardia with sinus arrhythmia Otherwise normal ECG No previous ECGs available Referred By: Jackson Forbes Electronically Signed By: GREG AQUINO
[2024-07-01 06:31] VITALS: BP 123/74; PULSE 68; RESP 16; TEMP 36.3; O2SAT 98
--- NOTE | 2024-07-01 07:18 | PC.NURSE ---
Assumed care of pt at 0645. Pt appears to be resting in bed quietly. Continue plan of care for CARE team shukri.
[2024-07-01] MEDS: Escitalopram Oxalate 10 MG TABLET PO (08:58)
[2024-07-01] MEDS: Escitalopram Oxalate 5 MG TABLET PO (09:56)
[2024-07-01 10:01] VITALS: BP 117/63; PULSE 55; RESP 17; TEMP 36.6; O2SAT 98
--- NOTE | 2024-07-01 12:40 | PC.NURSE ---
Pt reports that she takes 15mg of Lexapro, 1.5 tablets
--- NOTE | 2024-07-01 12:55 | PHA.MEDREC ---
Pharmacy Consult ? Medication Reconciliation Pharmacy has reviewed the medication reconciliation done by nursing staff.
[2024-07-01] MEDS: hydrOXYzine HCL 25 MG TABLET PO ×2 (13:08→20:32)
--- NOTE | 2024-07-01 13:20 | PC.NURSE ---
Report given to CHARITY Moore
[2024-07-01 14:00] VITALS: BP 139/78; PULSE 61; RESP 16; TEMP 36.6; O2SAT 100
--- NOTE | 2024-07-01 14:33 | P.HPPS_ITS ---
HPI Date of Service: 07/01/24 Chief Complaint: SI Sources of Information: patient interviewed, chart reviewed and crisis/core team assessment reviewed HPI Subjective Notes: Hernandez Warning and Conditional Voluntary Narrative: Patient is a 28-year-old female with history of MDD and PTSD who presented to ER due to suicidal ideation with a plan to jump off the [facility] bridge in [place] secondary to increased depression. Per crisis report, patient reports she has been struggling with depression, living on her own for the 1st time and worrying about her father who is in [place] and brother in [place]. She also reports that she is facing eviction. Patient reports she has been struggling with suicide ideation since childhood. She reported history of trauma but chose not to elaborate. She reports being medication compliant. Denies HI/VH/AH. She reports poor sleep and appetite. During admission assessment, patient presents alert and oriented x3. calm and cooperative. Patient reports feeling depressed; patient stated, I feel like my depression came after the . I just got out in March. I had trauma that I'm trying to address in therapy . Patient reports she is in the process of trying to have her father come to the [place] from [place]. Patient stated, my brother also has a mental illness and we both just need our dad . Patient reports suicide ideation with thoughts of overdosing on medication or jumping off a bridge. Patient reports she has been taking her medications daily since April. Patient stated, I feel like my mood has improved a little but, feel like I need to go higher on the dose . denies HI/VH/AH. She currently does not have a outpatient psychiatric prescriber but would like a referral. Past Psychiatric History: This is patient's 1st inpatient psychiatric hospitalization. Does not have outpatient prescriber. Therapist: Emely ([facility]) History of suicide attempt via swallowing pills in her teens ; patient reports she was not hospitalized for this. Denies history of SIB Medical Evaluation Reviewed: Yes [facility] Medical History (Updated 07/01/24 @ 16:59 by Jayne Barnes NP) Anxiety and depression Family History: Denies Social History: Lives alone in an apartment. Single. No kids. High school diploma. 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 Substance History: Smokes marijuana daily. Denies any other substance use. Trauma History: Yes Diagnostics Vital Signs (24Hr): Vital Signs - 24 hr 06/30/24 15:04 06/30/24 17:19 07/01/24 06:31 Temperature 98.2 F 99.2 F 97.4 F Pulse Rate 58 54 68 Respiratory Rate 16 16 16 Blood Pressure 132/80 124/75 123/74 Pulse Oximetry 100 98 98 Oxygen Delivery Method Room Air Room Air Room Air 07/01/24 10:01 Temperature 97.9 F Pulse Rate 55 Respiratory Rate 17 Blood Pressure 117/63 Pulse Oximetry 98 Oxygen Delivery Method Room Air BMI result Body Mass Index 28.3 Labs 06/30/24 15:20 07/01/24 14:39 Labs: Laboratory Results - last 48 hr 06/30/24 06/30/24 15:20 19:38 WBC 4.9 RBC 3.87 L Hgb 12.3 Hct 37.0 MCV 95.6 MCH 31.8 MCHC 33.2 RDW 11.9 Plt Count 184 MPV 9.7 Immature Gran % (Auto) 0.0 Neut % (Auto) 35.3 L Lymph % (Auto) 55.0 H [place] % (Auto) 7.7 Eos % (Auto) 1.4 Baso % (Auto) 0.6 Lymph # (Auto) 2.7 [place] # (Auto) 0.4 Eos # (Auto) 0.1 Baso # (Auto) 0.0 Abs Immat Gran (auto) 0.00 Absolute Neuts (auto) 1.7 L Absolute Nucleated RBC 0.000 Nucleated RBC % (auto) 0.0 Sodium 139 Potassium 4.4 Chloride 109 H Carbon Dioxide 24 Anion Gap 10 L BUN 11 Creatinine 0.88 Estim Creat Clear Calc 84.0 Estimated GFR > 60 Random Glucose 91 Calcium 8.9 Total Bilirubin 0.2 AST 23 ALT 19 Alkaline Phosphatase 47 Total Protein 6.9 Albumin 3.7 Beta HCG, Quant < 2 Urine Color Yellow Urine Appearance Clear Urine pH 7.0 Ur Specific [place] 1.020 Urine Protein Negative Urine Glucose (UA) Negative Urine Ketones Negative Urine Blood Negative Urine Nitrite Negative Ur Leukocyte Esterase Negative Urine Test NEGATIVE Urine Opiates Screen Not Detected Ur Buprenorphine Scrn Not Detected Ur Oxycodone Screen Not Detected Urine Methadone Screen Not Detected Urine Fentanyl Screen Not Detected Ur Barbiturates Screen Not Detected Ur Phencyclidine Scrn Not Detected Ur Amphetamines Screen Not Detected U Benzodiazepines Scrn Not Detected Urine Cocaine Screen Not Detected U Marijuana (THC) Screen POSITIVE H Ethyl Alcohol < 10 Meds/Allergies Meds Home Medications ?Medication ?Instructions ?Recorded ?Confirmed ?Type escitalopram oxalate 10 mg tablet 15 mg PO DAILY 06/30/24 07/01/24 History (Lexapro) hydroxyzine HCl 10 mg tablet 25 mg PO TID PRN Anxiety 06/30/24 06/30/24 History Allergies Allergies Allergy/AdvReac Type Severity Reaction Status Date / Time No Known Allergies Allergy Verified 06/30/24 15:06 Mental Status Exam Mental Status Exam Narrative: Pt is alert and oriented; behavior is cooperative and calm; dressed in casual attire; mood is described as depressed ; eye contact appropriate; Speech is normal rate, volume and not pressured; thought process is organized; Thought content is on tx; otherwise pertinent to relevant topics and without any delusional content, paranoid ideations or grandiosity; denies HI/VH/AH. Patient reports suicidal ideation with plan to overdose on medications or jumping off bridge . Assessment & Plan Assessment & Plan (1) MDD (major depressive disorder), recurrent episode, severe: Status: Acute Code(s): F33.2 - Major depressive disorder, recurrent severe without psychotic features (2) PTSD (post-traumatic stress disorder): Status: Acute Code(s): F43.10 - Post-traumatic stress disorder, unspecified Plan Patient is a 28-year-old female with history of MDD and PTSD who presented to ER due to suicidal ideation with a plan to jump off the [facility] bridge in [place] secondary to increased depression. Plan: CV 15 minute safety checks Continue home medications Increase Lexapro to 20 mg p.o. daily Obtain collateral Encourage groups Referral to outpatient psychiatric prescriber Discharge planning Patient educated on: diagnosis and medication risk/benefits Reason for continued inpatient stay Substantial Risk for: harm to self and med/psych decompensation Statement Statement: I have reviewed the history and physical and performed a pertinent examination on my patient. No changes have occurred unless specified. If the History and Physical was not performed prior to admission, the Hospitalist's service will be consulted for completing the admission physical. Time Spent With Patient Time: Total time managing care of this patient today _60___ minutes.
[2024-07-01 14:56] LABS: Alanine Aminotransferase 20 U/L (0-31); Albumin Level 3.9 g/dL (3.5-5.0); Alkaline Phosphatase 47 U/L (39-117); Anion Gap 13 (12-20); Aspartate Amino Transferase 22 U/L (5-31); Bilirubin Total 0.6 mg/dL (0.0-1.0); Blood Urea Nitrogen 11 mg/dL (9-16); Calcium 9.4 mg/dL (8.4-10.2); Carbon Dioxide 27 mmol/L (22-29); Chloride 105 mmol/L (96-108); Creatinine Clr Calc Pharmacy 86.9; Estimated Glomerular Filt Rate > 60; Glucose Random 78 mg/dL (60-115); Sodium 141 mmol/L (135-145); Total Protein 7.2 g/dL (6.5-8.0)
[2024-07-01 15:00] VITALS: BMI 23.7
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
[2024-07-01 20:00] VITALS: BP 125/62; PULSE 88; RESP 16; TEMP 37.3; O2SAT 99
[2024-07-02 07:00] VITALS: BMI 23.5
[2024-07-02 07:28] VITALS: BP 104/61; PULSE 55; RESP 14; TEMP 36.9; O2SAT 98
[2024-07-02] MEDS: Escitalopram Oxalate 20 MG TABLET PO (08:47)
[2024-07-02] MEDS: hydrOXYzine HCL 25 MG TABLET PO ×2 (10:53→16:05)
--- NOTE | 2024-07-02 11:29 | P.PNPSI_ITS ---
Subjective Subjective Date of Service: 07/02/24 Reason For Visit: SI Subjective Notes: 3 Day Interim History: Laying in bed. keeping to self. 3 day up on 07/06/24. Patient continues to report feeling depressed; pt stated, I want to get back to my regular routine. I don't like being here . Patient reports she will try to attend groups today. denies SI/HI/VH/AH. denies any side effects from increase in medication. Continue current tx plan. Medication Compliance: Yes Side effects from medications: No Attending Groups: No Mental Status Exam Mental Status Exam Narrative: Pt is alert and oriented; behavior is cooperative and calm; dressed in casual attire; mood is described as depressed ; eye contact appropriate; Speech is normal rate, volume and not pressured; thought process is organized; Thought content is on tx; denies SI/HI/VH/AH. Diagnostics Vital Signs (24Hr): Vital Signs - 24 hr 07/01/24 14:00 07/01/24 20:00 07/02/24 07:28 Temperature 98 F 99.1 F 98.5 F Pulse Rate 61 88 55 Respiratory Rate 16 16 14 Blood Pressure 139/78 125/62 104/61 Pulse Oximetry 100 99 98 Oxygen Delivery Method Room Air Room Air Room Air BMI result Body Mass Index 23.7 Labs 06/30/24 15:20 07/01/24 14:39 Labs: Laboratory Results - last 48 hr 06/30/24 06/30/24 07/01/24 15:20 19:38 14:39 WBC 4.9 RBC 3.87 L Hgb 12.3 Hct 37.0 MCV 95.6 MCH 31.8 MCHC 33.2 RDW 11.9 Plt Count 184 MPV 9.7 Immature Gran % (Auto) 0.0 Neut % (Auto) 35.3 L Lymph % (Auto) 55.0 H [place] % (Auto) 7.7 Eos % (Auto) 1.4 Baso % (Auto) 0.6 Lymph # (Auto) 2.7 [place] # (Auto) 0.4 Eos # (Auto) 0.1 Baso # (Auto) 0.0 Abs Immat Gran (auto) 0.00 Absolute Neuts (auto) 1.7 L Absolute Nucleated RBC 0.000 Nucleated RBC % (auto) 0.0 Sodium 139 141 Potassium 4.4 4.0 Chloride 109 H 105 Carbon Dioxide 24 27 Anion Gap 10 L 13 BUN 11 11 Creatinine 0.88 0.85 Estim Creat Clear Calc 84.0 86.9 Estimated GFR > 60 > 60 Random Glucose 91 78 Calcium 8.9 9.4 Total Bilirubin 0.2 0.6 AST 23 22 ALT 19 20 Alkaline Phosphatase 47 47 Total Protein 6.9 7.2 Albumin 3.7 3.9 Beta HCG, Quant < 2 Urine Color Yellow Urine Appearance Clear Urine pH 7.0 Ur Specific [place] 1.020 Urine Protein Negative Urine Glucose (UA) Negative Urine Ketones Negative Urine Blood Negative Urine Nitrite Negative Ur Leukocyte Esterase Negative Urine Test NEGATIVE Urine Opiates Screen Not Detected Ur Buprenorphine Scrn Not Detected Ur Oxycodone Screen Not Detected Urine Methadone Screen Not Detected Urine Fentanyl Screen Not Detected Ur Barbiturates Screen Not Detected Ur Phencyclidine Scrn Not Detected Ur Amphetamines Screen Not Detected U Benzodiazepines Scrn Not Detected Urine Cocaine Screen Not Detected U Marijuana (THC) Screen POSITIVE H Ethyl Alcohol < 10 Medications Medications Current Medications Acetaminophen (Acetaminophen 325 Mg Tablet) 650 mg PO Q6H PRN PRN Reason: Headache/Pain, Scale 1-10 Al Hydroxide/Mg Hydroxide (Magnesium Hydrox/Alum Hydrox 30 Ml Oral.Susp) 30 ml PO Q6H PRN PRN Reason: Heartburn/Nausea Escitalopram Oxalate (Escitalopram Oxalate 20 Mg Tablet) 20 mg PO DAILY ALEAH Last Admin: 07/02/24 08:47 Dose: 20 mg Hydroxyzine HCl (Hydroxyzine Hcl 25 Mg Tablet) 25 mg PO TID PRN PRN Reason: Anxiety Last Admin: 07/02/24 10:53 Dose: 25 mg Magnesium Hydroxide (Milk Of Magnesia 30 Ml Oral.Susp) 30 ml PO DAILY PRN PRN Reason: Constipation Trazodone HCl (Trazodone Hcl 50 Mg Tablet) 50 mg PO BEDTIME MRX1 PRN PRN Reason: Insomnia Allergies Allergies Allergy/AdvReac Type Severity Reaction Status Date / Time No Known Allergies Allergy Verified 06/30/24 15:06 Assessment & Plan Assessment & Plan (1) MDD (major depressive disorder), recurrent episode, severe: Status: Acute Code(s): F33.2 - Major depressive disorder, recurrent severe without psychotic features (2) PTSD (post-traumatic stress disorder): Status: Acute Code(s): F43.10 - Post-traumatic stress disorder, unspecified Plan Patient is a 28-year-old female with history of MDD and PTSD who presented to ER due to suicidal ideation with a plan to jump off the [facility] bridge in [place] secondary to increased depression. Plan: CV 15 minute safety checks Continue home medications Increase Lexapro to 20 mg p.o. daily Obtain collateral Encourage groups Referral to outpatient psychiatric prescriber Discharge planning 07/02: Laying in bed. keeping to self. 3 day up on 07/06/24. Patient continues to report feeling depressed; pt stated, I want to get back to my regular routine. I don't like being here . Patient reports she will try to attend groups today. denies SI/HI/VH/AH. denies any side effects from increase in medication. Continue current tx plan. Patient educated on: diagnosis, medication risk/benefits and therapeutic strategies Reason for continued inpatient stay Substantial Risk for: med/psych decompensation Time Spent With Patient Time: Total time managing care of this patient today _20___ minutes.
[2024-07-02 20:00] VITALS: BP 111/60; PULSE 60; RESP 16; TEMP 37.1; O2SAT 99
[2024-07-02] MEDS: traZODone HCL 50 MG TABLET PO ×2 (20:48→21:34)
[2024-07-03 07:49] VITALS: BP 109/51; PULSE 57; RESP 16; TEMP 36.5; O2SAT 98
--- NOTE | 2024-07-03 08:56 | HO.PSYCHPN ---
Subjective Subjective Date of Service: 07/03/24 Reason For Visit: SI Subjective Notes: 3 Day Interim History: Patient reports feeling okay today; pt stated, I don't like being in here. I've been talking ot my dad a lot. I'm no longer feeling suicidal; I can't do that to my dad . denies SI/HI/VH/AH. per nursing slept 8 hours. 3 day up on 07/06/24. Continue current tx plan. Medication Compliance: Yes Side effects from medications: No Mental Status Exam Mental Status Exam Narrative: Pt is alert and oriented; behavior is cooperative and calm; dressed in casual attire; mood is described as okay ; eye contact appropriate; Speech is normal rate, volume and not pressured; thought process is organized; Thought content is on discharge; denies SI/HI/VH/AH. Diagnostics Vital Signs (24Hr): Vital Signs - 24 hr 07/02/24 20:00 07/03/24 07:49 Temperature 98.7 F 97.7 F Pulse Rate 60 57 Respiratory Rate 16 16 Blood Pressure 111/60 109/51 L Pulse Oximetry 99 98 Oxygen Delivery Method Room Air Room Air BMI result Body Mass Index 23.5 Labs 06/30/24 15:20 07/01/24 14:39 Labs: Laboratory Results - last 48 hr 07/01/24 14:39 Sodium 141 Potassium 4.0 Chloride 105 Carbon Dioxide 27 Anion Gap 13 BUN 11 Creatinine 0.85 Estim Creat Clear Calc 86.9 Estimated GFR > 60 Random Glucose 78 Calcium 9.4 Total Bilirubin 0.6 AST 22 ALT 20 Alkaline Phosphatase 47 Total Protein 7.2 Albumin 3.9 Medications Medications Current Medications Acetaminophen (Acetaminophen 325 Mg Tablet) 650 mg PO Q6H PRN PRN Reason: Headache/Pain, Scale 1-10 Al Hydroxide/Mg Hydroxide (Magnesium Hydrox/Alum Hydrox 30 Ml Oral.Susp) 30 ml PO Q6H PRN PRN Reason: Heartburn/Nausea Escitalopram Oxalate (Escitalopram Oxalate 20 Mg Tablet) 20 mg PO DAILY ALEAH Last Admin: 07/02/24 08:47 Dose: 20 mg Hydroxyzine HCl (Hydroxyzine Hcl 25 Mg Tablet) 25 mg PO TID PRN PRN Reason: Anxiety Last Admin: 07/02/24 16:05 Dose: 25 mg Magnesium Hydroxide (Milk Of Magnesia 30 Ml Oral.Susp) 30 ml PO DAILY PRN PRN Reason: Constipation Trazodone HCl (Trazodone Hcl 50 Mg Tablet) 50 mg PO BEDTIME MRX1 PRN PRN Reason: Insomnia Last Admin: 07/02/24 21:34 Dose: 50 mg Allergies Allergies Allergy/AdvReac Type Severity Reaction Status Date / Time No Known Allergies Allergy Verified 06/30/24 15:06 Assessment & Plan Assessment & Plan (1) MDD (major depressive disorder), recurrent episode, severe: Status: Acute Code(s): F33.2 - Major depressive disorder, recurrent severe without psychotic features (2) PTSD (post-traumatic stress disorder): Status: Acute Code(s): F43.10 - Post-traumatic stress disorder, unspecified Plan Patient is a 28-year-old female with history of MDD and PTSD who presented to ER due to suicidal ideation with a plan to jump off the [facility] in [place] secondary to increased depression. Plan: CV 15 minute safety checks Continue home medications Increase Lexapro to 20 mg p.o. daily Obtain collateral Encourage groups Referral to outpatient psychiatric prescriber Discharge planning 07/02: Laying in bed. keeping to self. 3 day up on 07/06/24. Patient continues to report feeling depressed; pt stated, I want to get back to my regular routine. I don't like being here . Patient reports she will try to attend groups today. denies SI/HI/VH/AH. denies any side effects from increase in medication. Continue current tx plan. 07/03: Patient reports feeling okay today; pt stated, I don't like being in here. I've been talking ot my dad a lot. I'm no longer feeling suicidal; I can't do that to my dad . denies SI/HI/VH/AH. per nursing slept 8 hours. 3 day up on 07/06/24. Continue current tx plan. Patient educated on: diagnosis, medication risk/benefits and therapeutic strategies Reason for continued inpatient stay Substantial Risk for: med/psych decompensation Time Spent With Patient Time: Total time managing care of this patient today _20___ minutes.
[2024-07-03] MEDS: Escitalopram Oxalate 20 MG TABLET PO (09:00)
[2024-07-03] MEDS: hydrOXYzine HCL 25 MG TABLET PO ×2 (12:39→19:45)
[2024-07-03 20:40] VITALS: BP 121/69; PULSE 77; RESP 16; TEMP 37.4; O2SAT 97
[2024-07-03] MEDS: traZODone HCL 50 MG TABLET PO (22:55)
[2024-07-04 08:00] VITALS: BP 94/55; PULSE 66; RESP 16; TEMP 36.9; O2SAT 98
[2024-07-04] MEDS: Escitalopram Oxalate 20 MG TABLET PO (08:51)
--- NOTE | 2024-07-04 13:43 | P.PNPSI_ITS ---
Subjective Subjective Date of Service: 07/04/24 Reason For Visit: SI Interim History: Reports ongoing depression and feeling tired. She is isolated to her room however denies suicidal thoughts. Denies SI/HI/VH/AH. Says she is worried about her father who is in [place] and having a difficult time reaching him. per nursing slept 8 hours. 3 day up on 07/06/24. Review of Systems Review of Systems Constitutional : No Weight loss, No Fever, No Chills, No Night Sweats, No Fatigue, No Malaise ENT/Mouth : No Hearing loss, No Ear Pain, No Nasal Congestion, No Sinus Pain, No Hoarseness, No sore throat, No Rhinorrhea, No Swallowing Difficulty Eyes: No Eye Pain, No Swelling, No Redness, No Foreign Body, No Discharge, No Vision Changes Cardiovascular : No Chest Pain, No SOB, No Dyspnea on Exertion, No Orthopnea, No Edema, No Palpitations Respiratory : No Cough, No Sputum, No Wheezing, No Smoke Exposure, No Dyspnea Gastrointestinal : No Nausea, No Vomiting, No Diarrhea, No Constipation, No abdominal Pain, No Hematochezia, No Melena Genitourinary : no irregular bleeding, No Dysuria, No Urinary Frequency, No Hematuria, No Urinary Incontinence, No Urgency, No Flank Pain, No Urinary Flow Changes, No Hesitancy Musculoskeletal : No joint pain, No Myalgias, No Joint Swelling Skin : No Skin Lesions, No rash Neuro : No Weakness, No Numbness, No Paresthesias, No Loss of Consciousness, No Dizziness, No Headache Psych : Complaining of anxiety, depression, suicidal ideation, no HI Heme/Lymph: No Bruising, No Bleeding,No Lymphadenopathy Endocrine : No Polyuria, No Polydipsia, No Temperature Intolerance Mental Status Exam Mental Status Exam Narrative: Pt is alert and oriented; behavior is cooperative and calm; dressed in casual attire; mood is described as okay ; eye contact appropriate; Speech is normal rate, volume and not pressured; thought process is organized; Thought content is on discharge; denies SI/HI/VH/AH. Diagnostics Vital Signs (24Hr): Vital Signs - 24 hr 07/03/24 20:40 07/04/24 08:00 Temperature 99.4 F 98.4 F Pulse Rate 77 66 Respiratory Rate 16 16 Blood Pressure 121/69 94/55 L Pulse Oximetry 97 98 Oxygen Delivery Method Room Air Room Air BMI result Body Mass Index 23.5 Labs 06/30/24 15:20 07/01/24 14:39 Medications Medications Current Medications Acetaminophen (Acetaminophen 325 Mg Tablet) 650 mg PO Q6H PRN PRN Reason: Headache/Pain, Scale 1-10 Al Hydroxide/Mg Hydroxide (Magnesium Hydrox/Alum Hydrox 30 Ml Oral.Susp) 30 ml PO Q6H PRN PRN Reason: Heartburn/Nausea Escitalopram Oxalate (Escitalopram Oxalate 20 Mg Tablet) 20 mg PO DAILY ALEAH Last Admin: 07/04/24 08:51 Dose: 20 mg Hydroxyzine HCl (Hydroxyzine Hcl 25 Mg Tablet) 25 mg PO TID PRN PRN Reason: Anxiety Last Admin: 07/03/24 19:45 Dose: 25 mg Magnesium Hydroxide (Milk Of Magnesia 30 Ml Oral.Susp) 30 ml PO DAILY PRN PRN Reason: Constipation Trazodone HCl (Trazodone Hcl 50 Mg Tablet) 50 mg PO BEDTIME MRX1 PRN PRN Reason: Insomnia Last Admin: 07/03/24 22:55 Dose: 50 mg Allergies Allergies Allergy/AdvReac Type Severity Reaction Status Date / Time No Known Allergies Allergy Verified 06/30/24 15:06 Assessment & Plan Assessment & Plan (1) MDD (major depressive disorder), recurrent episode, severe: Status: Acute Code(s): F33.2 - Major depressive disorder, recurrent severe without psychotic features (2) PTSD (post-traumatic stress disorder): Status: Acute Code(s): F43.10 - Post-traumatic stress disorder, unspecified Plan Patient is a 28-year-old female with history of MDD and PTSD who presented to ER due to suicidal ideation with a plan to jump off the [facility] in [place] secondary to increased depression. Plan: CV 15 minute safety checks Continue home medications Increase Lexapro to 20 mg p.o. daily Obtain collateral Encourage groups Referral to outpatient psychiatric prescriber Discharge planning 07/02: Laying in bed. keeping to self. 3 day up on 07/06/24. Patient continues to report feeling depressed; pt stated, I want to get back to my regular routine. I don't like being here . Patient reports she will try to attend groups today. denies SI/HI/VH/AH. denies any side effects from increase in medication. Continue current tx plan. 07/03: Patient reports feeling okay today; pt stated, I don't like being in here. I've been talking ot my dad a lot. I'm no longer feeling suicidal; I can't do that to my dad . denies SI/HI/VH/AH. per nursing slept 8 hours. 3 day up on 07/06/24. Continue current tx plan. 07/04: continue current management and treatment plan. Reason for continued inpatient stay Substantial Risk for: harm to self, inability to function and rapid decompensation Time Spent With Patient Time: Total time managing care of this patient today ____ minutes.
[2024-07-04] MEDS: hydrOXYzine HCL 25 MG TABLET PO ×2 (16:01→22:09)
[2024-07-04 19:40] VITALS: BP 125/75; PULSE 74; RESP 16; TEMP 37.4; O2SAT 100
[2024-07-04] MEDS: traZODone HCL 50 MG TABLET PO ×2 (22:09→23:30)
[2024-07-05 07:39] VITALS: BP 106/62; PULSE 68; RESP 16; TEMP 36.8; O2SAT 98
[2024-07-05] MEDS: Escitalopram Oxalate 20 MG TABLET PO (09:35)
[2024-07-05] MEDS: Sennosides 8.6 MG TABLET PO (13:44)
[2024-07-05] MEDS: Docusate Sodium 100 MG CAPSULE PO (13:44)
[2024-07-05] MEDS: Milk of Magnesia 30 ML ORAL.SUSP PO (14:18)
--- NOTE | 2024-07-05 14:32 | HO.PSYCHPN ---
Subjective Subjective Date of Service: 07/05/24 Reason For Visit: SI Interim History: Says she is still depressed but denies SI. Says she wants to leave so she can go and see her father in [place]. Says his health hasn't been good. She worries about him. She says she has no friend or family support here. She has her therapist. She lives alone. 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 Tolerating medications well. No side effects. Slept late yesterday and had a hard time falling asleep. Says she woke up early today and plans not to take naps so she can sleep better today. 3 day up on 07/06/24. Constipation. Review of Systems Review of Systems Constitutional : No Weight loss, No Fever, No Chills, No Night Sweats, No Fatigue, No Malaise ENT/Mouth : No Hearing loss, No Ear Pain, No Nasal Congestion, No Sinus Pain, No Hoarseness, No sore throat, No Rhinorrhea, No Swallowing Difficulty Eyes: No Eye Pain, No Swelling, No Redness, No Foreign Body, No Discharge, No Vision Changes Cardiovascular : No Chest Pain, No SOB, No Dyspnea on Exertion, No Orthopnea, No Edema, No Palpitations Respiratory : No Cough, No Sputum, No Wheezing, No Smoke Exposure, No Dyspnea Gastrointestinal : No Nausea, No Vomiting, No Diarrhea, No Constipation, No abdominal Pain, No Hematochezia, No Melena Genitourinary : no irregular bleeding, No Dysuria, No Urinary Frequency, No Hematuria, No Urinary Incontinence, No Urgency, No Flank Pain, No Urinary Flow Changes, No Hesitancy Musculoskeletal : No joint pain, No Myalgias, No Joint Swelling Skin : No Skin Lesions, No rash Neuro : No Weakness, No Numbness, No Paresthesias, No Loss of Consciousness, No Dizziness, No Headache Psych : Complaining of anxiety, depression, suicidal ideation, no HI Heme/Lymph: No Bruising, No Bleeding,No Lymphadenopathy Endocrine : No Polyuria, No Polydipsia, No Temperature Intolerance Mental Status Exam Mental Status Exam Narrative: Pt is alert and oriented; behavior is cooperative and calm; dressed in casual attire; mood is described as okay ; eye contact appropriate; Speech is normal rate, volume and not pressured; thought process is organized; Thought content is on discharge; denies SI/HI/VH/AH. Diagnostics Vital Signs (24Hr): Vital Signs - 24 hr 07/04/24 19:40 07/05/24 07:39 Temperature 99.3 F 98.2 F Pulse Rate 74 68 Respiratory Rate 16 16 Blood Pressure 125/75 106/62 Pulse Oximetry 100 98 Oxygen Delivery Method Room Air Room Air BMI result Body Mass Index 23.5 Labs 06/30/24 15:20 07/01/24 14:39 Medications Medications Current Medications Acetaminophen (Acetaminophen 325 Mg Tablet) 650 mg PO Q6H PRN PRN Reason: Headache/Pain, Scale 1-10 Al Hydroxide/Mg Hydroxide (Magnesium Hydrox/Alum Hydrox 30 Ml Oral.Susp) 30 ml PO Q6H PRN PRN Reason: Heartburn/Nausea Docusate Sodium (Docusate Sodium 100 Mg Capsule) 100 mg PO BID PRN PRN Reason: Constipation Last Admin: 07/05/24 13:44 Dose: 100 mg Escitalopram Oxalate (Escitalopram Oxalate 20 Mg Tablet) 20 mg PO DAILY ALEAH Last Admin: 07/05/24 09:35 Dose: 20 mg Hydroxyzine HCl (Hydroxyzine Hcl 25 Mg Tablet) 25 mg PO TID PRN PRN Reason: Anxiety Last Admin: 07/04/24 22:09 Dose: 25 mg Magnesium Hydroxide (Milk Of Magnesia 30 Ml Oral.Susp) 30 ml PO DAILY PRN PRN Reason: Constipation Last Admin: 07/05/24 14:18 Dose: 30 ml Senna (Sennosides 8.6 Mg Tablet) 8.6 mg PO DAILY PRN PRN Reason: Constipation Last Admin: 07/05/24 13:44 Dose: 8.6 mg Trazodone HCl (Trazodone Hcl 50 Mg Tablet) 50 mg PO BEDTIME MRX1 PRN PRN Reason: Insomnia Last Admin: 07/04/24 23:30 Dose: 50 mg Allergies Allergies Allergy/AdvReac Type Severity Reaction Status Date / Time No Known Allergies Allergy Verified 06/30/24 15:06 Assessment & Plan Assessment & Plan (1) MDD (major depressive disorder), recurrent episode, severe: Status: Acute Code(s): F33.2 - Major depressive disorder, recurrent severe without psychotic features (2) PTSD (post-traumatic stress disorder): Status: Acute Code(s): F43.10 - Post-traumatic stress disorder, unspecified Plan Patient is a 28-year-old female with history of MDD and PTSD who presented to ER due to suicidal ideation with a plan to jump off the [facility] bridge in [place] secondary to increased depression. Plan: CV 15 minute safety checks Continue home medications Increase Lexapro to 20 mg p.o. daily Obtain collateral Encourage groups Referral to outpatient psychiatric prescriber Discharge planning 07/02: Laying in bed. keeping to self. 3 day up on 07/06/24. Patient continues to report feeling depressed; pt stated, I want to get back to my regular routine. I don't like being here . Patient reports she will try to attend groups today. denies SI/HI/VH/AH. denies any side effects from increase in medication. Continue current tx plan. 07/03: Patient reports feeling okay today; pt stated, I don't like being in here. I've been talking ot my dad a lot. I'm no longer feeling suicidal; I can't do that to my dad . denies SI/HI/VH/AH. per nursing slept 8 hours. 3 day up on 07/06/24. Continue current tx plan. 07/04: continue current management and treatment plan. 07/05: Colace and senna for constipation. Continue current management and treatment plan. Reason for continued inpatient stay Substantial Risk for: harm to self, inability to function and rapid decompensation Time Spent With Patient Time: Total time managing care of this patient today ____ minutes.
[2024-07-05 20:00] VITALS: BP 134/81; PULSE 97; RESP 16; TEMP 36.8; O2SAT 95
[2024-07-05] MEDS: traZODone HCL 50 MG TABLET PO (23:04)
[2024-07-06 07:35] VITALS: BP 127/71; PULSE 83; RESP 18; TEMP 36.1; O2SAT 100
[2024-07-06] MEDS: Escitalopram Oxalate 20 MG TABLET PO (08:34)
--- NOTE | 2024-07-06 10:25 | PM.PSYDC ---
DS: Providers Provider Date of Service: 07/06/24 Date of admission: 07/01/24 12:24 Date of discharge: 07/06/24 Primary care physician: Toan Liu MD Admitting clinician: Jayne Barnes Attending physician on admission: Ming Viveros Attending physician on discharge: Ming Viveros Discharging clinician: Jayne Barnes DS: Diagnosis Discharge Diagnosis (1) MDD (major depressive disorder), recurrent episode, severe: Status: Acute (2) PTSD (post-traumatic stress disorder): Status: Acute DS: Medications Discharge Medications Home Medications: Home Medications ?Medication ?Instructions ?Recorded ?Confirmed escitalopram oxalate 10 mg tablet 15 mg PO DAILY 06/30/24 07/01/24 (Lexapro) hydroxyzine HCl 10 mg tablet 25 mg PO TID PRN Anxiety 06/30/24 06/30/24 Mental Status Exam Mental Status Exam Narrative: Pt is alert and oriented; behavior is cooperative and calm; dressed in casual attire; mood is described as good ; eye contact appropriate; Speech is normal rate, volume and not pressured; thought process is organized; Thought content is on discharge; denies SI/HI/VH/AH. Data Data Completed and Pending Completed studies during hospitalization [Text1]: 06/30/24 06/30/24 07/01/24 15:20 19:38 14:39 WBC 4.9 RBC 3.87 L Hgb 12.3 Hct 37.0 MCV 95.6 MCH 31.8 MCHC 33.2 RDW 11.9 Plt Count 184 MPV 9.7 Immature Gran % (Auto) 0.0 Neut % (Auto) 35.3 L Lymph % (Auto) 55.0 H Carlisle % (Auto) 7.7 Eos % (Auto) 1.4 Baso % (Auto) 0.6 Lymph # (Auto) 2.7 Carlisle # (Auto) 0.4 Eos # (Auto) 0.1 Baso # (Auto) 0.0 Abs Immat Gran (auto) 0.00 Absolute Neuts (auto) 1.7 L Absolute Nucleated RBC 0.000 Nucleated RBC % (auto) 0.0 Sodium 139 141 Potassium 4.4 4.0 Chloride 109 H 105 Carbon Dioxide 24 27 Anion Gap 10 L 13 BUN 11 11 Creatinine 0.88 0.85 Estim Creat Clear Calc 84.0 86.9 Estimated GFR > 60 > 60 Random Glucose 91 78 Calcium 8.9 9.4 Total Bilirubin 0.2 0.6 AST 23 22 ALT 19 20 Alkaline Phosphatase 47 47 Total Protein 6.9 7.2 Albumin 3.7 3.9 Beta HCG, Quant < 2 Urine Color Yellow Urine Appearance Clear Urine pH 7.0 Ur Specific Essex 1.020 Urine Protein Negative Urine Glucose (UA) Negative Urine Ketones Negative Urine Blood Negative Urine Nitrite Negative Ur Leukocyte Esterase Negative Urine Test NEGATIVE Urine Opiates Screen Not Detected Ur Buprenorphine Scrn Not Detected Ur Oxycodone Screen Not Detected Urine Methadone Screen Not Detected Urine Fentanyl Screen Not Detected Ur Barbiturates Screen Not Detected Ur Phencyclidine Scrn Not Detected Ur Amphetamines Screen Not Detected U Benzodiazepines Scrn Not Detected Urine Cocaine Screen Not Detected U Marijuana (THC) Screen POSITIVE H Ethyl Alcohol < 10 DS: Summary Hospital Course Hospital Course: Patient is a 28-year-old female with history of MDD and PTSD who presented to ER due to suicidal ideation with a plan to jump off the [facility] bridge in [place] secondary to increased depression. Per crisis report, patient reports she has been struggling with depression, living on her own for the 1st time and worrying about her father who is in [place] and brother in [place]. She also reports that she is facing eviction. Patient reports she has been struggling with suicide ideation since childhood. She reported history of trauma but chose not to elaborate. She reports being medication compliant. Denies HI/VH/AH. She reports poor sleep and appetite. During admission assessment, patient presents alert and oriented x3. calm and cooperative. Patient reports feeling depressed; patient stated, I feel like my depression came after the . I just got out in March. I had trauma that I'm trying to address in therapy . Patient reports she is in the process of trying to have her father come to the [place] from [place]. Patient stated, my brother also has a mental illness and we both just need our dad . Patient reports suicide ideation with thoughts of overdosing on medication or jumping off a bridge. Patient reports she has been taking her medications daily since April. Patient stated, I feel like my mood has improved a little but, feel like I need to go higher on the dose . denies HI/VH/AH. She currently does not have a outpatient psychiatric prescriber but would like a referral. Plan: CV 15 minute safety checks Continue home medications Increase Lexapro to 20 mg p.o. daily Obtain collateral Encourage groups Referral to outpatient psychiatric prescriber Discharge planning Laying in bed. keeping to self. 3 day up on 07/06/24. Patient continues to report feeling depressed; pt stated, I want to get back to my regular routine. I don't like being here . Patient reports she will try to attend groups today. denies SI/HI/VH/AH. denies any side effects from increase in medication. Continue current tx plan. Patient reports feeling okay today; pt stated, I don't like being in here. I've been talking ot my dad a lot. I'm no longer feeling suicidal; I can't do that to my dad . denies SI/HI/VH/AH. per nursing slept 8 hours. 3 day up on 07/06/24. Continue current tx plan. Says she is still depressed but denies SI. Says she wants to leave so she can go and see her father in [place]. Says his health hasn't been good. She worries about him. She says she has no friend or family support here. She has her therapist. She lives alone. 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 Tolerating medications well. No side effects. Slept late yesterday and had a hard time falling asleep. Says she woke up early today and plans not to take naps so she can sleep better today. 3 day up on 07/06/24. Patient reports feeling good and is looking forward to discharge. 3 day up 07/06/24. Pt reports she plans on following up with outpatient providers. denies SI/HI/VH/AH. Status at Discharge Cognitive/behavioral status at discharge: Patient has insight and demonstrates good judgment in terms of wanting to pursue treatment. Patient has a safety plan that includes presenting to the closest ER or calling 911 if feeling unsafe. Functional status at discharge: independent ambulation Overall status at discharge: patient is back to baseline Time Spent with Patient Time attestation: Total time managing care of this patient today _20___ minutes. Time spent: Less than 30 minutes Discharge Plan Discharge Anticipated Discharge Date/Time: 07/06/24 11:00 Patient Disposition: Home, Self-Care Discharge Diagnosis: MDD, PTSD Referrals: Therapy & Psychiatry [Other] - 1 Week (*Please follow up with your therapist at the agency listed above. Also, follow up regarding the referral that was placed for medication management. ) Therapy [Other] - 1 Week (*Please follow up with your therapist at the agency listed above. They may be able to set you up with a medication prescriber as well. Please ask them what other supports can be provided to you through this agency. ) Toan Liu MD [Primary Care Provider] - 07/13/24 10:45 am (07-06-24 Your follow up appt has been scheduled for 07-13-24 @ 10:45am with Dr. Liu. ) Discharge Medications: New escitalopram oxalate 20 mg Tablet 20 mg PO DAILY 30 Days Qty: 30 0RF Continued hydroxyzine HCl 25 mg tablet 25 mg PO TID PRN (Reason: anxiety) 30 Days Qty: 90 0RF Discontinued escitalopram oxalate [Lexapro] 10 mg Tablet 15 mg PO DAILY Discharge Orders: Discharge Order (Routine); Ordered 07/06/24 Ordered By: Jayne Barnes Diet: Regular diet Activity on Discharge: As tolerated Stand Alone Forms: Patient Portal Discharge page, Community Support Print Language: Ukrainian Care Plan Goals: Maintain mood and safe behaviors Take medications as prescribed Practice coping skills Continue with outpatient providers and reach out to them as needed Health Concerns: Mood stability and behaviors Plan of Treatment: Follow up with your PCP, psychiatric provider and other outpatient providers regarding above concerns Take medications as prescribed Assessment: Patient has insight and demonstrates good judgment in terms of wanting to pursue treatment. Patient has a safety plan that includes presenting to the closest ER or calling 911 if feeling unsafe. Discharge Date/Time: 07/06/24 11:15
--- NOTE | 2024-07-06 11:32 | PC.NURSE ---
Patient easily engaged. Reports mood has improved, continues depressed however improved overall. Reports it was helpful to be here, I needed my medication upped . Denies SI/HI plan or intent. endorses mild anxiety. No reported perceptual disturbances, no overt psychosis or expressed delusions. Discharge paperwork reviewed with patient reports understanding. Follow up appointments reviewed with patient reports understanding. Medications reviewed with patient, reports understanding. Crisis numbers provided to patient. All belongings taken with patient.
== END 2024-07-06 11:15 | disposition home or self-care (01) | DRG 751 ==
LOC: HO.ED 19:24 → HO.PADLT16 07-01 12:37
PROVIDERS: Admitting Provider Registered Nurse; Emergency Provider Emergency Medicine; PCP Student in an Organized Health Care Education/Training Program; Responsible Provider Registered Nurse; Visit Provider Psychiatry & Neurology Psychiatry
DX: F33.2 Major depressive disorder, recurrent severe without psychotic features (principal); R45.851 Suicidal ideations; F17.210 Nicotine dependence, cigarettes, uncomplicated; F43.10 Post-traumatic stress disorder, unspecified; Z71.6 Tobacco abuse counseling
CPT/HCPCS: 36415; 80053; 80307; 81003; 81025; 84702; 85025; 93005; 99285

== ENCOUNTER → 2024-07-01 09:30 | Outpatient (BNV) | payer OTHER, SELFPAY | PROVIDERS: Admitting Provider Registered Nurse; Emergency Provider Emergency Medicine; PCP Student in an Organized Health Care Education/Training Program; Responsible Provider Registered Nurse; Visit Provider Internal Medicine | DX: R00.1 Bradycardia, unspecified (principal) | CPT/HCPCS: 93010 ==

== ENCOUNTER → 2024-07-01 12:24 | Outpatient (BNV) | payer OTHER, SELFPAY | PROVIDERS: Admitting Provider Registered Nurse; Emergency Provider Emergency Medicine; PCP Student in an Organized Health Care Education/Training Program; Responsible Provider Registered Nurse; Visit Provider Registered Nurse | DX: F33.2 Major depressive disorder, recurrent severe without psychotic features (principal); F43.11 Post-traumatic stress disorder, acute | CPT/HCPCS: 99231; 99232; 99233; 99238 ==

== ENCOUNTER 2024-07-07 08:38 | Emergency (ER) | payer OTHER, SELFPAY ==
[2024-07-07 08:41] VITALS: BP 155/80; PULSE 91; RESP 20; TEMP 36.8; O2SAT 98; BMI 23.2
--- NOTE | 2024-07-07 08:52 | ECG_ITS ---
Test Reason : CP Blood Pressure : */* mmHG Vent. Rate : 88 BPM Atrial Rate : 88 BPM P-R Int : 210 ms QRS Dur : 78 ms QT Int : 360 ms P-R-T Axes : 51 59 37 degrees QTcB Int : 435 ms Sinus rhythm with 1st degree A-V block Possible Left atrial enlargement Borderline ECG When compared with ECG of 01-Jul-2024 09:30, Vent. rate has increased by 33 bpm Referred By: Generic ED Physician Electronically Signed By: Prasad Luciano
[2024-07-07 09:01] LABS: MANUAL DIFF FLAG NO
[2024-07-07 09:02] LABS: Basophils Percent Auto 0.4 % (0-2); Eosinophils Absolute Auto 0.1 X10*3/uL (0.0-0.4); Eosinophils Percent Auto 1.5 % (0-4); Hematocrit 38.3 % (37.0-47.0); Hemoglobin 13.4 g/dl (12.0-16.0); Imm Gran Abs Auto 0.01 X10*3/uL (0.00-0.03); Imm Gran Pct Auto 0.1 % (0.0-0.4); Lymphocytes Absolute Auto 3.1 X10*3/uL (1.2-4.9); Lymphocytes Percent Auto 43.1 % (20-40); Mean Corpuscular Hemoglobin 32.1 pg (27.0-33.0); Mean Corpuscular Volume 91.6 fL (80.0-98.0); Mean Platelet Volume 9.7 fL (9.4-12.3); Monocytes Absolute Auto 0.7 X10*3/uL (0.1-1.2); Monocytes Percent Auto 10.4 % (2-11); Neutrophils Absolute Auto 3.2 x10*3/uL (2.0-8.3); Neutrophils Percent Auto 44.5 % (45-73); Platelet Count 191 X10*3/uL (160-400); Red Blood Count 4.18 X10*6/uL (4.20-5.50); Red Cell Distribution Width 11.6 % (11.0-16.0); White Blood Count 7.1 X10*3/uL (4.8-10.8)
--- NOTE | 2024-07-07 09:03 | ED.GENADULT ---
HPI - General Adult General Chief complaint: General Medical Stated complaint: Abd pain radiating to legs, high BP Time Seen by Provider: 07/07/24 09:02 Source: patient Mode of arrival: ambulatory Limitations: no limitations History of Present Illness ED Provider: Willa Wills PA-C HPI narrative: Patient is a 28 year old assigned female at with a history of PTSD, anxiety, and depression, presenting to the emergency department today with an elevated blood pressure reading and concerns about a recent medication change. Patient states that she was recently admitted to our adult psychiatric unit here at [facility] where her lexapro was increased. Patient states that ever since the increase, she has been feeling as though she is having high blood pressure. Patient states that she also had intercourse and afterward a large blood clot was expelled from her vagina but she is not having any continued vaginal bleeding. Patient confirmed that she does not have any chest pain or shortness of breath at this time. Patient denies any dizziness, lightheadedness, abdominal pain, nausea, vomiting, fever, chills, blurry vision, double vision, loss of vision, difficulty breathing, back pain, night sweats, pain with urination, increased urinary frequency, increased urinary urgency, blood in her urine or stool, syncope or a near syncopal episode, recent trauma or falls, bowel incontinence, bladder incontinence, or any other complaints at this time. Relieving factors: none Exacerbating factors: none Related Data Previous Rx's ?Medication ?Instructions ?Recorded escitalopram oxalate 20 mg tablet 20 mg PO DAILY 30 days #30 tabs 07/06/24 hydroxyzine HCl 25 mg tablet 25 mg PO TID PRN anxiety 30 days 07/06/24 #90 tabs Allergies Allergy/AdvReac Type Severity Reaction Status Date / Time No Known Allergies Allergy Verified 07/07/24 08:45 Review of Systems Constitutional: Constitutional: Reports no additional constitutional complaints, Denies chills, Denies fever(s) and Denies night sweats Eyes: Eyes: Reports no additional eye complaints, Denies blurry vision, Denies change in vision, Denies diplopia, Denies eye discharge, Denies loss of vision and Denies eye pain ENT: Denies dizziness Cardiovascular: Cardiovascular: Reports no additional cardiovascular complaints, Denies chest pain, Denies lightheadedness, Denies Loss of Consciousness and Denies dyspnea Respiratory: Respiratory: Reports no additional respiratory complaints and Denies dyspnea Gastrointestinal: Gastrointestinal: Reports no additional gastrointestinal complaints, Denies abdominal pain, Denies melena, Denies hematochezia, Denies change in bowel habits and Denies change in stool character Genitourinary: Genitourinary: Denies hematuria, Denies urinary frequency, Denies dysuria, Denies urinary incontinence, Denies urinary hesitancy and Denies urinary urgency Musculoskeletal: Musculoskeletal: Reports no additional musculoskeletal complaints, Denies numbness and Denies tingling Neurologic: Denies dizziness, Denies loss of vision, Denies numbness and Denies tingling Psychiatric: Psychiatric: Reports no additional psychiatric complaints Endocrine: Endocrine: Reports no additional endocrine complaints Hematologic/Lymphatic: Hematologic/Lymphatic: Reports no additional hematologic/lymphatic complaints Allergic/Immunologic: Allergic/Immunologic: Reports no additional allergic/immunologic complaints PMFSH Past Medical History Attestation statement: The following information was validated with the patient. Source: old records reviewed and nursing notes reviewed Medical History Anxiety and depression Social History Social History Household Members: None Housing: Apartment Do you presently have visiting nurse or other home services: No Patient Tobacco Use Status: Current everyday Tobacco user Smoked in Last 30 Days: Yes e-Cigarette/Vaping Use: Currently Using Second Hand Smoke Exposure: No Use of substances other than those prescribed or required for medical reasons: Yes Substance Use Type: Marijuana Substance Use Frequency: Daily Last Used Substance: Days (ago) Any prior treatment program specific to substance use: No Advance Directives: No Advance Directives Information Provided: Yes Do you have a plan to hurt others: No Plan Patient : No service: Yes (Rachio) Sexual orientation: Straight/Heterosexual Physical Exam ED Vital Signs: Vital Signs - 24 hr 07/07/24 08:41 07/07/24 09:23 07/07/24 09:38 Temperature 98.3 F 98.5 F 98.5 F Pulse Rate 91 86 86 Respiratory Rate 20 16 16 Blood Pressure 155/80 H 123/84 123/84 Pulse Oximetry 98 99 99 Oxygen Delivery Method Nasal Cannula Room Air Room Air BMI result Body Mass Index 23.2 Const General: cooperative, no acute distress, alert and awake Nutritional Appearance: well nourished Orientation/consciousness: patient oriented x3 Limitations: no limitations HENMT Head: Yes normal to inspection and Yes atraumatic Ears: hearing grossly normal bilaterally and external ears normal General nose exam: Normal external nose present, no nasal discharge noted and no epistaxis Face and sinus: Yes normal facial exam, No abrasion and No laceration Mouth: Normal oral and palatal mucosa present, no drooling and no muffled voice Eyes General: appearance normal, both eyes and all related structures Periorbital: periorbital findings normal Eyelids: Yes eyelids normal Conjunctivae: conjunctivae normal Pupils: Equal, round and reactive pupils present EOM: EOMs intact bilaterally Neck Neck: Yes normal visual inspection, Yes full ROM and Yes no lymphadenopathy Chest Chest palpation & inspection: normal inspection of the chest Resp Effort & Inspection: normal respiratory effort and able to speak in complete sentences GI Inspection: Yes normal to inspection Neuro General: patient oriented x3, moves all extremities and CN's II-XI intact bilaterally Cranial nerves: Yes Equal, round and reactive pupils present Cognition (Neuro): normal cognition Extrem General: Yes normal to inspection, Yes full ROM and Yes capillary refill normal Psych Appearance: grossly normal Mental Status: mental status grossly normal Speech and movement: Normal speech and movement present Affect: Anxious affect present Attitude: cooperative Thought process: Normal thought process present Medical Decision Making Medical Decision Making MDM Narrative: Patient is a 28 year old assigned female at with a history of PTSD, anxiety, and depression, presenting to the emergency department today with an elevated blood pressure reading and concerns about a recent medication change. Patient's physical exam showed an anxious individual but otherwise unremarkable. Patient's blood work was unremarkable with no evidence of anemia. I explained my physical exam findings as well as all test results to the patient. I answered all questions asked by the patient. I had an extensive conversation with the patient that the medication change was unlikely to cause her 1 episode of vaginal bleeding or her transient elevated blood pressure readings however - given the change and her concerns surrounding it, we decided through shared decision making - to have the patient go back to her original dose. At that time the patient stated she had not been taking thew new dose since discharge from the psychiatric floor and she will continue to take her original dose. Patient confirmed no thoughts of harming herself or others. I stressed the importance of the patient taking her medication as directed (either prescribed or as the over the counter packaging recommends). I stressed the importance of the patient following up with her primary care provider. I stressed the importance of the patient returning to the emergency department immediately if her symptoms were to worsen or if she were to develop any dizziness, shortness of breath, difficulty breathing, chest pain, blurry vision, loss of vision, nausea, vomiting, abdominal pain, fever, chills, back pain, or any other complaints. Patient verbalized agreement and understanding with this treatment plan and discharge. Differential Diagnosis Differential Diagnoses: The differential diagnosis associated with the presentation includes Anxiety HTN High blood pressure reading Medication change Admission/Observation Consideration of admission/observation: Escalation of care including admission/observation considered Patient would have been admitted to the hospital had her work up had any findings where hospital admission was appropriate and her clinical presentation warranted hospital admission. Lab Data [facility] Lab Attestation statement: I reviewed the patient's lab results. My interpretation of these results are in the [facility] Rationale portion of this note. 07/07/24 08:57 07/07/24 08:57 Labs: Lab Results 07/07/24 Range/Units 08:57 WBC 7.1 (4.8-10.8) X10*3/uL RBC 4.18 L (4.20-5.50) X10*6/uL Hgb 13.4 (12.0-16.0) g/dl Hct 38.3 (37.0-47.0) % MCV 91.6 (80.0-98.0) fL MCH 32.1 (27.0-33.0) pg MCHC 35.0 (31.0-35.0) g/dl RDW 11.6 (11.0-16.0) % Plt Count 191 (160-400) X10*3/uL MPV 9.7 (9.4-12.3) fL Immature Gran % (Auto) 0.1 (0.0-0.4) % Neut % (Auto) 44.5 L (45-73) % Lymph % (Auto) 43.1 H (20-40) % Moffat % (Auto) 10.4 (2-11) % Eos % (Auto) 1.5 (0-4) % Baso % (Auto) 0.4 (0-2) % Lymph # (Auto) 3.1 (1.2-4.9) X10*3/uL Moffat # (Auto) 0.7 (0.1-1.2) X10*3/uL Eos # (Auto) 0.1 (0.0-0.4) X10*3/uL Baso # (Auto) 0.0 (0.0-0.2) X10*3/uL Abs Immat Gran (auto) 0.01 (0.00-0.03) X10*3/uL Absolute Neuts (auto) 3.2 (2.0-8.3) x10*3/uL Absolute Nucleated RBC 0.000 (0.0-0.012) X10*3/uL Nucleated RBC % (auto) 0.0 (0.0-0.2) /100WBC Sodium 136 (135-145) mmol/L Potassium 3.9 (3.3-5.1) mmol/L Chloride 106 (96-108) mmol/L Carbon Dioxide 24 (22-29) mmol/L Anion Gap 10 L (12-20) BUN 17 H (9-16) mg/dL Creatinine 0.84 (0.5-1.4) mg/dL Estim Creat Clear Calc 75.2 Estimated GFR > 60 Random Glucose 99 (60-115) mg/dL Calcium 9.2 (8.4-10.2) mg/dL Total Bilirubin 0.2 (0.0-1.0) mg/dL AST 28 (5-31) U/L ALT 18 (0-31) U/L Alkaline Phosphatase 49 (39-117) U/L Total Protein 7.6 (6.5-8.0) g/dL Albumin 4.2 (3.5-5.0) g/dL Discharge Plan Discharge Clinical Impression: Elevated blood pressure reading Patient Disposition: Home, Self-Care Additional Instructions: Your work up today was reassuring that you do not currently have an emergent cause for your symptoms. Given your concerns around your lexapro increase - as we discussed, go back to your original lexapro dose. While you did have some mildly elevated blood pressure readings while in the department, there is no evidence of end organ damage (what happens when high blood pressure goes untreated for long periods of time). Please continue to monitor your blood pressure and discuss that with your PCP. Follow up with your primary care provider. Return to the emergency department immediately if your symptoms worsen or if you develop any numbness, tingling, dizziness, shortness of breath, difficulty breathing, chest pain, blurry vision, loss of vision, nausea, vomiting, abdominal pain, fever, chills, back pain, or any other complaints. Prescriptions: No Action escitalopram oxalate 20 mg Tablet 20 mg PO DAILY 30 Days Qty: 30 0RF hydroxyzine HCl 25 mg tablet 25 mg PO TID PRN (Reason: anxiety) 30 Days Qty: 90 0RF Referrals: Toan Liu MD [Primary Care Provider] - Stand Alone Forms: Work/School Release Interventions: ED Discharge Assessment Last Done: 07/07/24 09:38 Discharge Date/Time: 07/07/24 09:42 Print Language: Swiss
[2024-07-07 09:19] LABS: Alanine Aminotransferase 18 U/L (0-31); Albumin Level 4.2 g/dL (3.5-5.0); Alkaline Phosphatase 49 U/L (39-117); Anion Gap 10 (12-20); Aspartate Amino Transferase 28 U/L (5-31); Bilirubin Total 0.2 mg/dL (0.0-1.0); Blood Urea Nitrogen 17 mg/dL (9-16); Calcium 9.2 mg/dL (8.4-10.2); Carbon Dioxide 24 mmol/L (22-29); Chloride 106 mmol/L (96-108); Creatinine Clr Calc Pharmacy 75.2; Estimated Glomerular Filt Rate > 60; Glucose Random 99 mg/dL (60-115); Potassium 3.9 mmol/L (3.3-5.1); Sodium 136 mmol/L (135-145); Total Protein 7.6 g/dL (6.5-8.0)
[2024-07-07 09:23] VITALS: BP 123/84; PULSE 86; RESP 16; TEMP 36.9; O2SAT 99
[2024-07-07 09:38] VITALS: BP 123/84; PULSE 86; RESP 16; TEMP 36.9; O2SAT 99
--- OUTSIDE RECORDS SUMMARY | 2024-07-07 09:59 | XMS_ITS | Clinical Summary ---
Author Organization [facility] Address [address] [place] [address] Care Team Providers Care Bait Man Name Role Phone Unavailable Primary Care Provider [...] Description 06/30/2024 11:45 AM EDT / Visits [address] [phone] Emely Mckeon LMHC Generalized anxiety disorder (Primary Dx) 06/25/2024 8:30 AM EDT / Visits [address] [phone] Emely Mckeon LMHC Generalized anxiety disorder (Primary [...] Description 07/14/2024 8:30 AM EDT / Visits [address] [place] [phone] Emely Mckeon, [facility] [address] [place] [address] Health Maintenance Due Date Last Done Comments Anxiety Screening 1995 HPV Screening 1995 Hepatitis C Screening 1995 Pap + HPV 1995 HIV Screening 09/13/2010 Relationship Safety Screening/Counseling 09/13/2010 Hypertension Screening (#1) 09/13/2013 Cervical Cancer Screening 09/13/2016 Pap Smear 09/13/2016 [id number] ( season) 2023 12/19/2022, 12/12/2020, 12/11/2020, Additional [...] Vulvoscopy Discontinued Insurance [facility] Member Subscriber Plan / Payer (Ef fective 2023-Present) Name:JanedarrenJesus Relation to Subscriber:Self Name:JanedarrenJesus Payer ID:[id number] Type:Indemnity Address: [address] [place] [id number]
--- OUTSIDE RECORDS SUMMARY | 2024-07-07 09:59 | XMS_ITS | Clinical Summary ---
Author Organization [facility] Address [address] [place] [address] Care Team Providers Care Nuclear Monitoring Technician Name Role Phone Ron Ryder DO Primary Care Provider [phone] Allergies No known active allergies Medications No known medications Active Problems Problem Noted Date Diagnosed Date Acute pulmonary embolism without acute cor pulmo nale 09/11/2022 Social History Tobacco Use Types Packs/Day Years Used Date Smoking Tobacco: Never Assessed Sex and Gender Information Value Date Recorded Sex Assigned at Not on file Gender Identity Not on file Sexual Orientation Not on file Job Start Date Occupation Industry Not on file Not on file Not on file Last Filed Vital Signs Vital Sign Reading Time Taken Comments Blood Pressure 130/89 09/20/2022 11:02 AM EDT Pulse 85 09/20/2022 11:02 AM EDT Temperature 36.8 ??C (98.2 ??F) 09/20/2022 11:02 AM E DT Respiratory Rate - - Oxygen Saturation 100% 09/20/2022 11:02 AM EDT Inhaled Oxygen Concentration - - Weight 57.6 kg (127 lb) 09/20/2022 11:02 AM EDT Height - - Body Mass Index - - Plan of Treatment Health Maintenance Due Date Last Done Comments Hepatitis C Screening 1995 COVID-19 Vaccine (#1) 03/16/1996 Depression Screening 2007 Preventative Health Evaluation 09/13/2013 Cervical Cancer Screening (Pap Smear) 09/13/2016 Influenza Vaccine (#1) 2023 7, 05/10/2010, 12/29/2007 DTap / Tdap / Td (7 - Td or Tdap) 07/08/2030 07/08/2020, 11/27/2006, 10/02/1999, Additional history exists Hepatitis B Vaccines Completed 08/30/1999, 1995, 1995 Pneumococcal Vaccine Aged Out No long er eligible based on patient's age to complete this topic RSV Ped < 20 months Aged Out No longe r eligible based on patient's age to complete this topic Care Teams Nuclear Monitoring Technician Relationship Specialty Start Date End Date Ron Ryder DO [address] [place] [id number] PCP - General Family Medicine 07/20/22
--- OUTSIDE RECORDS SUMMARY | 2024-07-07 09:59 | XMS_ITS | Clinical Summary ---
Author Organization [facility] Address [address] [place] [address] Care Team Providers Care Brake Operator Heavy Duty Name Role Phone Alaina Hernandez MD Primary Care Provider [phone] Allergies No known active allergies Medications metroNIDAZOLE (FLAGYL) 500 MG tabletIndicatio ns:Vaginal discharge Take 1 tablet (500 mg total) by mouth 3 (three) times a day. Take with meals or food to reduce stomach upset. 21 tablet 1 Active metroNIDAZOLE (METROGEL) 0.75 % topical gelIndications: Vaginal discharge Apply topically 2 (two) times a day. 45 g 1 Active fluconazole (diFLUcan) 150 MG tabletIndicatio ns:Yeast vaginitis One today and one in a week if not better 2 tablet 1 Active escitalopram (LEXAPRO) 10 MG tablet Take 10 mg by mouth daily. 4 Active hydrOXYzine HCl (ATARAX) 25 MG tablet Take 25 mg by mouth 3 (three) times a day as needed. 4 Active Active Problems No known active problems Social History Tobacco Use Types Packs/Day Years Used Date Smoking Tobacco: Never Smokeless Tobacco: Never Tobacco Cessation:Counseling Given: Not Answered Alcohol Use Standard Drinks/Week Comments Not Currently 0 (1 standard drink = 0.6 oz pur e alcohol) Comments Unknown Sex and Gender Information Value Date Recorded Sex Assigned at Female 01/22/2024 8:41 PM EST Legal Sex Female 9:29 AM EDT Gender Identity Female 01/22/2024 8:41 PM EST Sexual Orientation Heterosexual (straight) 01/21 8:41 PM EST Last Filed Vital Signs Vital Sign Reading Time Taken Comments Blood Pressure 137/84 01/22/2024 8:29 PM EST Pulse 93 01/22/2024 8:29 PM EST Temperature 36.4 ??C (97.5 ??F) 01/22/2024 8:29 PM ES T Respiratory Rate 16 01/22/2024 8:29 PM EST Oxygen Saturation 100% 01/22/2024 8:29 PM EST Inhaled Oxygen Concentration - - Weight 56.7 kg (125 lb) 01/22/2024 11:12 AM EST Height 154.9 cm (5' 1 ) 01/22/2024 11:12 AM EST Body Mass Index 23.62 01/22/2024 11:12 AM EST Plan of Treatment Health Maintenance Due Date Last Done Comments Hepatitis C Virus Screening 1995 HIV Screening 09/13/2008 DTaP/Tdap/Td Vaccines (1 - Tdap) 09/13/2014 Hepatitis B Vaccines (1 of 3 - 19+ 3-dose series) 09/13/2014 Pap Smear (Ages 21-65) 09/13/2016 Influenza Vaccine 10/10/2023 12/31/2022, , 05/10/2010, Additional history exists COVID-19 Vaccine (2023- season) 2023 12/19/2022, 12/11/2020, 11/11/2020 HPV Vaccines Aged Out No longer eligi ble based on patient's age to complete this topic Pneumococcal Vaccine: Pediatric (0-5 Years) and At-Risk Patients (6 to 49 Years) Aged Out No longer eligible based on patient's age to complete this topic Insurance [facility] [place] [id number] [facility] Care Teams Brake Operator Heavy Duty Relationship Specialty Start Date End Date Alaina Hernandez MD [address] [place] [address] [place] [address] PCP - General 11/08/20
--- OUTSIDE RECORDS SUMMARY | 2024-07-07 09:59 | XMS_ITS | Encounter Summary ---
Author Organization [facility] Address [address] [place] [address] Care Team Providers Care Repair Mechanic Name Role Phone Toan Liu MD Primary Care Provider [phone] Reason for Visit * Reason Comments Leg Pain Right leg pain/cramp ing. Concerned for DVT. H/O dvt in 2018 Encounter Details Date Type Department Care Team ([facility] st Contact Info) Description 07/07/2024 2:17 AM EDT - 07/07/2024 3:45 AM EDT Emergency [facility] Emergency [address] [place] [id number] Discharge Disposition: Home or Self Care Social History Tobacco Use Types Packs/Day Years Used Date Smoking Tobacco: Every Day Pipe Smokeless Tobacco: Never Alcohol Use Standard Drinks/Week Comments Yes 3 [...] care for your loved ones. For example, childcare administrator or elderly care for an older adult? 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 Not on file Not on file documented as of this encounter Last Filed Vital Signs Vital Sign Reading Time Taken Comments Blood Pressure 121/81 07/07/2024 2:23 AM EDT Pulse 100 07/07/2024 2:23 AM EDT Temperature 36.7 ??C (98.1 ??F) 07/07/2024 2:23 AM ED T Respiratory Rate 20 07/07/2024 2:23 AM EDT Oxygen Saturation 99% 07/07/2024 2:23 AM EDT Inhaled Oxygen Concentration - - Weight 56.7 kg (125 lb) 07/07/2024 2:23 AM EDT Height 154.9 cm (5' 1 ) 07/07/2024 2:23 AM EDT Body Mass Index 23.62 07/07/2024 2:23 AM EDT documented in this encounter Medications at Time of Discharge escitalopram (LEXAPRO) 10 mg tablet Take 1.5 tablets (15 mg total) by mouth 1 (one) time each day. Take 1.5 pill with breakfast 45 each 5 04/29/2024 hydrOXYzine HCL (ATARAX) 25 mg tablet Take 1 tablet (25 mg total) by mouth 3 (three) times a day if needed for anxiety (depression). 90 tablet 2 04/29/2024 5 documented as of this encounter Discharge Disposition Disposition Code Departure Means Destination Home or Self Care documented in this encounter Progress Notes * Desirae Galvan RN - 07/07/2024 2:24 AM EDT Pt c/o right leg pain for the last few days. Hx of blood clot. Pt is suppose to be on eliquis but has not taken it. Pt's blood pressure was taken as seen in the latest vital sign assessment. Vss werenormal. Pt stated she was in school and requests a smaller cuff. Blood pressure was taken with smaller cuff resulting in a bp of 144/104. Pt then stated she was going somewhere else d/t out interactio n. Pt told me her blood pressure was elevated d/t our interaction. Pt then requesting to speak witha cloth bleaching supervisor. Deb. Kezia sneedlaundry housekeeper called. Pt recording in the waiting room. Pt then left and stated she would be back tomorrow to speak with a cloth bleaching supervisor. Please see midas. documented in this encounter Plan of Treatment Upcoming Encounters Date Type Department Care Team ([facility] st Contact Info) Description 07/13/2024 10:45 AM EDT Office Visit Internal Medicine - [address] [place] [address] Toan Liu MD [address] [address] 08/31/2024 1:00 PM EDT Office Visit Internal Medicine - [address] [phone] Toan Liu MD [address] [place] [id number] documented as of this encounter Visit Diagnoses Not on filedocumented in this encounter Additional Health Concerns Assessment Noted Time PHQ-9 Depression Total Score: 24 025 7:48 AM EST documented as of this encounter Care Teams Repair Mechanic Relationship Specialty Start Date End Date Toan Liu MD [address] [place] [id number] PCP - General Internal Medicine 01/28/24 documented as of this encounter
--- OUTSIDE RECORDS SUMMARY | 2024-07-07 09:59 | XMS_ITS | Clinical Summary ---
Author Organization 175 [facility] Address [address] [place] [address] Phone Care Team Providers Care Housing Assistant Property Manager Name Role Phone Toan Liu MD Primary Care Provider [phone] Allergies No known active allergies Medications escitalopram [...] pulmonary embolism wit hout acute cor pulmonale ([facility] V24, [facility] V28) 09/11/2022 Polycystic ovarian syndrome 09/25/2021 Overview (12/25/2023): Last Assessment & Plan: Pt meets criteria for PCOS by [place] criteria of irregular menses, elevated testosterone and multicystic ovaries on ultrasound. She was counseled regarding the implications of PCOS including irregular ovulation which can lead to endometrial hyperplasia or malignancy, and also subfertility or infertility. I also reviewed long-term risks of cardiovascular disease and diabetes. I [...] Encounters Date Type Department Care Team Description 07/07/2024 2:17 AM EDT - 07/07/2024 3:45 AM EDT Emergency [facility] Emergency [address] [place] [address] Discharge Disposition: Home or Self Care 07/06/2024 Telephone Internal Medicine [address] [phone] Kaycee Bautista RN 06/03/2024 3:45 PM EDT Office Visit Internal Medicine [address] [phone] Jaquan Castrejon MD Syncope, unspecified syncope type (Primary Dx); Contusion of scalp, initial encounter 06/01/2024 Telephone Internal Medicine [address] [phone] Toan Liu MD Khan; Letter 04/29/2024 10:45 AM EST Office Visit Internal Medicine [address] [phone] Toan Liu MD Anxiety and depression (Primary Dx) 04/23/2024 2:30 PM EST Office Visit Obstetrics & Gynecology - [facility] [address] [place] [phone] Racquel Marsh CNM Encounter for well woman exam with routine gynecological exam (Primary Dx); Late menses; Screening breast examination; Body integrity dysphoria; Screen for STD (sexually transmitted disease); Polycystic ovarian syndrome; Severe episode of recurrent major depressive disorder, without psychotic features (CMS/HCC V24, CMS/HCC V28) 04/20/2024 10:25 AM EST - 04/20/2024 5:11 PM EST Emergency [facility] Emergency [address] [place] [phone] Jasen Maldonado MD Major depressive disorder, recurrent episode, moderate (CMS/HCC V24, CMS/HCC V28) (Primary Dx); Acute depression Discharge Disposition: Home or Self Care 04/17/2024 Telephone Internal Medicine - [place] 175 [facility] [address] [place] [phone] Toan Liu MD Khan: Referral from Last 3 Months Immunizations Name Administration Dates Next Due COVID-19 (Pfizer/Comirnaty) 12yo and older 12/19/2022 DTP 06/23/1996,01/24/1996,1995 DTaP (Infanrix) 6wks to less than 7yo 10/02/1999 [id number] (Pentacel) 2mo to less than 5yo 06/23/1996,01/24/1996,1995 [...] Other: fibroids Mother Mom Cancer Paternal Grandfather Gazorin Throat cancer Paternal Grandfather Gazorin smoker No Known Problems Paternal Grandmother No Known Problems Sister x1 2 other si sters with dad side Relation Name Status Comments Brother Alive 12/22/96 Jose Cordova Father Dad Alive Maternal Grandfather Chase Maternal Grandmother Grandma Mother Mom Alive 05/12/73 Lacy Kay Paternal Grandfather Gazorin Paternal Grandmother Alive Sister x1 Alive Social [...] your loved ones. For example, child care sitter or elderly care for an older adult? 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 Not [...] Mass Index 23.62 07/07/2024 2:23 AM EDT Plan of Treatment Upcoming Encounters Date Type Department Care Team (Late st Contact Info) Description 07/13/2024 10:45 AM EDT Office Visit Internal Medicine - [place] [address] [phone] Toan Liu MD [address] [address] 08/31/2024 1:00 PM EDT Office Visit Internal Medicine - [place] [address] [phone] Toan Liu MD [address] [address] Health Maintenance Due Date Last Done Comments Pneumococcal Vaccine: Pediatrics (0 to 5 Years) and At-Risk Patients (6 to 64 Years) (1 of 2 - PCV) 09/13/2014 Hepatitis C Screening 02/17/2022 COVID-19 Vaccine ( season) 2023 12/19/2022, 12/19/2022, 07/05/2021, Additional history [...] gonorrhoeae molecular study (04/23/2024 3:28 PM EST) Neisseria gonorrhoeae PCR Negative Negative LAB MOLECULAR DIAGNOSTICS METHOD 04/24/2024 9:19 AM EST [facility] Chlamydia trachomatis PCR Negative Negative LAB MOLECULAR DIAGNOSTICS METHOD 04/24/2024 9:19 AM EST [facility] Swab Cervix uteri structure / Unknown Non-blood Collection / Unknown 04/23/2024 3:28 PM EST 04/23/2024 3:55 PM EST Racquel Marsh [facility] LAB MICROBIOLOGY - GENERAL OR DERABLES Final Result [facility] [address] [place] [address], * POC , urine manually resulted (04/23/2024 3:08 PM EST) Only the most recent of2 resultswithin the time period is included. HCG, Ur POC Negative Negative POC hCG Int QC Pass? Yes Yes Urine Urine specimen obtained by clean catch procedure / Unknown 04/23/2024 3:08 PM EST Racquel Marsh [facility] POINT OF CARE TEST ENTER/EDIT ORDERABLES Final Result * ECG-Annotated (04/22/2024) us Provider Onbase MD ECG ORDERABLES Final Result * (ABNORMAL) Drug abuse screen 8a panel, urine (04/20/2024 10:48 AM EST) Amphetamine Screen, Ur Negative Negative LAB CHEMISTRY METHOD 5 11:52 AM [facility] Comment:Certain OTC medicati ons containing ephedrine, phenylephrine, pseudoephedrine and phenylpropanolamine can cause false positive results. Barbiturate Screen, Ur Negative Negative LAB CHEMISTRY METHOD 5 11:52 AM [facility] Benzodiazepine Screen, Ur Negative Negative LAB CHEMISTRY METHOD 11:52 AM [facility] Cocaine Screen, Ur Negative Negative LAB CHEMISTRY METHOD 5 11:52 AM [facility] Opiate Screen, Ur Negative Negative LAB CHEMISTRY METHOD 11:52 AM [facility] Cannabinoid (THC) Screen, Ur Positive(A ) Negative LAB CHEMISTRY METHOD 11:52 AM [facility] Comment:Specimens from patie nts taking pantoprazole sodium (Protonix) have been shown to produce false positive results. Oxycodone Screen, Ur Negative Negative LAB CHEMISTRY METHOD 5 11:52 AM [facility] Fentanyl, Ur Negative Negative LAB CHEMISTRY METHOD 5 11:52 AM [facility] Urine Urine specimen obtained by clean catch procedure / Unknown Non-blood Collection / Unknown 04/20/2024 10:48 AM EST 04/20/2024 11:07 AM [facility] - 04/20/2024 11:52 AM EST Assay cutoffs: Amphetamines ? 1000 ng/mL Barbiturates ?200 ng/mL Benzodiazepines ?? 200 ng/mL Cocaine ? 300 ng/mL Fentanyl ?1 ng/mL Opiates ? 300 ng/mL Oxycodone ? 100 ng/mL THC ?50 ng/mL Semi-quantitative assay for screening purposes only. Unconfirmed screening result should not be used for non-medical purposes. *ALTERNATE METHOD CONFIRMATION DONE UPON REQUEST ONLY* Jasen Maldonado MD LAB URINE ORDERABLES Tatyana l Result Performing Organization Address [facility] de Phone Number [facility] [address] [place] [address], * Buprenorphine screen, urine (04/20/2024 10:48 AM EST) Buprenorphine Screen Urine Negative Negative LAB CHEMISTRY METHOD 04/20/2024 11:52 AM EST [facility] Urine Urine specimen obtained by clean catch procedure / Unknown Non-blood Collection / Unknown 04/20/2024 10:48 AM EST 04/20/2024 11:07 AM EST Narrative [facility] - 04/20/2024 11:52 AM EST Assay cutoff 5 ng/mL Semi-quantitative assay for screening purposes only. Unconfirmed screening result should not be used for non-medical purposes. *ALTERNATE METHOD CONFIRMATION DONE UPON REQUEST ONLY* Jasen Maldonado MD LAB URINE ORDERABLES Tatyana l Result Performing Organization Address [facility] de Phone Number [facility] [address] [place] [address], * Methadone, urine (04/20/2024 10:48 AM EST) Methadone Screen, Urine Negative Negative LAB CHEMISTRY METHOD 04/20/2024 11:52 AM EST [facility] Comment: Assay cutoff 300 ng/mL Semi-quantitative assay for screening purposes only. Unconfirmed screening result should not be used for non-medical purposes. *ALTERNATE METHOD CONFIRMATION DONE UPON REQUEST ONLY* Urine Urine specimen obtained by clean catch procedure / Unknown Non-blood Collection / Unknown 04/20/2024 10:48 AM EST 04/20/2024 11:07 AM EST Jasen Maldonado MD LAB URINE ORDERABLES Tatyana l Result Performing Organization Address [facility] Co de Phone Number [facility] [address] [place] [address], [place] [phone] * Phencyclidine, urine (04/20/2024 10:48 AM EST) Pathologist [facility] PCP Scrn, Ur Negative Negative LAB CHEMISTRY METHOD 04/20/2024 11:52 AM EST [facility] Comment: Assay cutoff 25 ng/mL Semi-quantitative assay for screening purposes only. Unconfirmed screening result should not be used for non-medical purposes. *ALTERNATE METHOD CONFIRMATION DONE UPON REQUEST ONLY* Urine Urine specimen obtained by clean catch procedure / Unknown Non-blood Collection / Unknown 04/20/2024 10:48 AM EST 04/20/2024 11:07 AM EST Jasen Maldonado MD LAB URINE ORDERABLES Tatyana l Result Performing Organization Address [facility] Co de Phone Number [facility] [address] [place] [address], * ECG 12 lead (04/20/2024 10:31 AM EST) Ventricular Rate ECG 53 BPM GEMUSE Atrial Rate 53 BPM GEMUSE P-R Interval 186 ms GEMUSE QRS Duration 88 ms GEMUSE Q-T Interval 406 ms GEMUSE QTc 380 ms GEMUSE P Wave Vendor 40 degrees GEMUSE R Vendor 76 degrees GEMUSE T Vendor 48 degrees GEMUSE ECG Interpretation Sinus bradycardia with sinus arrhythmia Otherwise normal ECG No previous ECGs available Confirmed by Jorge HOLLINGSWORTH JAMES ([id number]) on 04/20/2024 6:34:22 PM GEMUSE 04/20/2024 10:3 1 AM EST 04/20/2024 6:34 PM EST us Jasen Maldonado MD ECG ORDERABLES Final Res ult GEMUSE * CBC auto differential (04/20/2024 10:27 AM EST) WBC 5.4 4.8 - 10.8 K/mcL LAB HEMETOLOGY METHOD 04/20/2024 10:50 AM [facility] RBC 4.30 3.80 - 4.80 M/mcL LAB HEMETOLOGY METHOD 04/20/2024 10:50 AM [facility] Hemoglobin 13.8 11.5 - 16.0 g/dL LAB HEMETOLOGY METHOD 04/20/2024 10:50 AM [facility] Hematocrit 41.4 35.0 - 47.0 % LAB HEMETOLOGY METHOD 04/20/2024 10:50 AM [facility] MCV 95.6 79.0 - 98.0 FL LAB HEMETOLOGY METHOD 04/20/2024 10:50 AM [facility] MCH 31.9 27.0 - 32.0 pcg LAB HEMETOLOGY METHOD 04/20/2024 10:50 AM [facility] MCHC 33.3 32.0 - 37.0 g/dL LAB HEMETOLOGY METHOD 04/20/2024 10:50 AM [facility] RDW 11.9 11.0 - 15.0 % LAB HEMETOLOGY METHOD 04/20/2024 10:50 AM [facility] Platelets 241 130 - 400 K/mcL LAB HEMETOLOGY METHOD 04/20/2024 10:50 AM [facility] MPV 9.6 7.0 - 11.0 FL LAB HEMETOLOGY METHOD 04/20/2024 10:50 AM [facility] NRBC 0.0 <1.0 % LAB HEMETOLOGY METHOD 04/20/2024 10:50 AM [facility] NRBC Absolute 0.00 <0.10 K/mcL LAB HEMETOLOGY METHOD 04/20/2024 10:50 AM [facility] Neutrophils Relative 40.6 % LAB HEMETOLOGY METHOD 04/20/2024 10:50 AM [facility] Lymphocytes Relative 49.3 % LAB HEMETOLOGY METHOD 04/20/2024 10:50 AM [facility] Monocytes Relative 8.2 % LAB HEMETOLOGY METHOD 04/20/2024 10:50 AM [facility] Eosinophils Relative 1.3 % LAB HEMETOLOGY METHOD 04/20/2024 10:50 AM [facility] Basophils Relative 0.4 % LAB HEMETOLOGY METHOD 04/20/2024 10:50 AM [facility] Immature Granulocytes Relative 0.2 % LAB HEMETOLOGY METHOD 04/20/2024 10:50 AM [facility] Neutrophils Absolute 2.18 1.50 - 7.00 K/mcL LAB HEMETOLOGY METHOD 04/20/2024 10:50 AM [facility] Lymphocytes Absolute 2.65 1.00 - 5.00 K/mcL LAB HEMETOLOGY METHOD 04/20/2024 10:50 AM [facility] Monocytes Absolute 0.44 0.20 - 1.00 K/mcL LAB HEMETOLOGY METHOD 04/20/2024 10:50 AM [facility] Eosinophils Absolute 0.07 0.00 - 0.50 K/mcL LAB HEMETOLOGY METHOD 04/20/2024 10:50 AM [facility] Basophils Absolute 0.02 0.00 - 0.20 K/mcL LAB HEMETOLOGY METHOD 04/20/2024 10:50 AM EST [facility] Immature Granulocytes Absolute 0.01 0.00 - 0.03 K/mcL LAB HEMETOLOGY METHOD 04/20/2024 10:50 AM EST [facility] Blood Venous blood specimen / Unknown Venipuncture / Unknown 04/20/2024 10:27 AM EST 04/20/2024 10:44 AM EST us Jasen Maldonado MD LAB BLOOD ORDERABLES Tatyana l Result Performing Organization Address City/[facility]/ZIP Co de Phone Number [facility] [address] [place] [address], [place] [phone] * Ethanol (04/20/2024 10:27 AM EST) Ethanol Level <3 0 - 10 mg/dL LAB CHEMISTRY METHOD 04/20/2024 11:11 AM EST [facility] Blood Venous blood specimen / Unknown Venipuncture / Unknown 04/20/2024 10:27 AM EST 04/20/2024 10:44 AM EST us Jasen Maldonado MD LAB BLOOD ORDERABLES Tatyana l Result Performing Organization Address [facility]/ZIP Co de Phone Number [facility] [address] [place] [address], [place] [phone] * (ABNORMAL) Acetaminophen level (04/20/2024 10:27 AM EST) Acetaminophen Level <2.0(L) 10.0 - 30.0 mcg/mL LAB CHEMISTRY METHOD 04/20/2024 11:17 AM EST [facility] Blood Venous blood specimen / Unknown Venipuncture / Unknown 04/20/2024 10:27 AM EST 04/20/2024 10:44 AM EST us Jasen Maldonado MD LAB BLOOD ORDERABLES Tatyana l Result [facility] [address] [place] [address], [place] [phone] * (ABNORMAL) Salicylate level (04/20/2024 10:27 AM EST) Salicylate Level <1.7(L) 2.0 - 29.0 mg/dL LAB CHEMISTRY METHOD 04/20/2024 11:11 AM [facility] Blood Venous blood specimen / Unknown Venipuncture / Unknown 04/20/2024 10:27 AM EST 04/20/2024 10:44 AM EST Jasen Maldonado MD LAB BLOOD ORDERABLES Tatyana l Result Performing Organization Address [facility]/State/ZIP Co de Phone Number [facility] [address] [place] [address], * Comprehensive metabolic panel (04/20/2024 10:27 AM EST) Sodium 139 133 - 145 mmol/L LAB CHEMISTRY METHOD 04/20/2024 11:11 AM [facility] Potassium 3.8 3.5 - 5.5 mmol/L LAB CHEMISTRY METHOD 04/20/2024 11:11 AM [facility] Chloride 107 96 - 110 mmol/L LAB CHEMISTRY METHOD 04/20/2024 11:11 AM [facility] CO2 26 21 - 32 mmol/L LAB CHEMISTRY METHOD 04/20/2024 11:11 AM [facility] Anion Gap 6 3 - 11 LAB CHEMISTRY METHOD 04/20/2024 11:11 AM [facility] Glucose 92 70 - 100 mg/dL LAB CHEMISTRY METHOD 04/20/2024 11:11 AM [facility] BUN 11 5 - 25 mg/dL LAB CHEMISTRY METHOD 04/20/2024 11:11 AM [facility] Creatinine 0.97 0.50 - 1.10 mg/dL LAB CHEMISTRY METHOD 04/20/2024 11:11 AM [facility] eGFR 82 >=60 mL/min/1. 73m2 LAB CHEMISTRY METHOD 04/20/2024 11:11 AM [facility] Comment:Calculation based on the??Chronic Kidney Disease Epidemiology Collaboration (CKD-EPI) equation refit??without adjustment for race. BUN/Creatinine Ratio 11.3 LAB CHEMISTRY METHOD 04/20/2024 11:11 AM [facility] Calcium 9.2 8.5 - 10.5 mg/dL LAB CHEMISTRY METHOD 04/20/2024 11:11 AM [facility] AST (SGOT) 17 10 - 42 unit/L LAB CHEMISTRY METHOD 04/20/2024 11:11 AM [facility] ALT (SGPT) 19 10 - 60 unit/L LAB CHEMISTRY METHOD 04/20/2024 11:11 AM [facility] Alkaline Phosphatase 46 42 - 121 unit/L LAB CHEMISTRY METHOD 04/20/2024 11:11 AM [facility] Total Protein 7.4 6.0 - 8.0 g/dL LAB CHEMISTRY METHOD 04/20/2024 11:11 AM [facility] Albumin 3.6 3.2 - 5.0 g/dL LAB CHEMISTRY METHOD 04/20/2024 11:11 AM [facility] Total Bilirubin 0.5 0.0 - 1.4 mg/dL LAB CHEMISTRY METHOD 04/20/2024 11:11 AM [facility] Blood Venous blood specimen / Unknown Venipuncture / Unknown 04/20/2024 10:27 AM EST 04/20/2024 10:44 AM EST us Jasen Maldonado MD LAB BLOOD ORDERABLES Tatyana l Result [facility] [address] [place] [address], [place] [phone] * Lipid panel (11/14/2022) Pathologist [facility] LDL/HDL Ratio 2 0 - 4 Triglycerides 28 0 - 150 mg/dL Cholesterol 110 0 - 200 mg/dL HDL 54 >=40 mg/dL LDL Cholesterol 51 0 - 100 mg/dL Blood Venous blood specimen / Unknown Historical Provider LAB BLOOD ORDERABLES Tatyana l Result * Cervical Cancer Screening: HPV (04/11/2022) Pathologist [facility] Cervical Cancer Screening: HPV Negative, Abstracted Historical Provider HEALTH MAINTENANCE Final Result from Last 3 Months or Most Recently Relevant to Health Maintenance Insurance [facility] [address] [place] [address] Care Teams Housing Assistant Property Manager Relationship Specialty Start Date End Date Toan Liu MD [address] [place] [address] [address] [place] [address] PCP - General Internal Medicine 01/28/24
--- OUTSIDE RECORDS SUMMARY | 2024-07-07 09:59 | XMS_ITS | Encounter Summary ---
Author Organization [facility] Address [address] [place] [address] Care Team Providers Care Metalsmith Apprentice Name Role Phone Toan Liu MD Primary Care Provider [phone] Encounter Details Date Type Department Care Team ([facility] st Contact Info) Description 07/06/2024 Telephone Internal Medicine - [place] [address] [place] [address] Kaycee Bautista, CHARITY Social History Tobacco Use Types Packs/Day Years [...] care for your loved ones. For example, early childhood assistant or elderly care for an older adult? 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 Appt scheduled Will fax dc summary 07/06 documented in this encounter Plan of Treatment Upcoming Encounters Date Type Department Care Team ([facility] st Contact Info) Description 07/13/2024 10:45 AM EDT Office Visit Internal Medicine - [place] [address] [facility] [address] [place] [address] Toan Liu MD [address] [address] 08/31/2024 1:00 PM EDT Office Visit Internal Medicine - [address] [phone] Toan Liu MD [address] [address] documented as of this encounter Visit Diagnoses Not on filedocumented in this encounter Additional Health Concerns Assessment Noted Time PHQ-9 Depression Total Score: 24 025 7:48 AM EST documented as of this encounter Care Teams Metalsmith Apprentice Relationship Specialty Start Date End Date Toan Liu MD [address] [address] PCP - General Internal Medicine 01/28/24 documented as of this encounter
== END 2024-07-07 09:42 | disposition home or self-care (01) ==
PROVIDERS: Emergency Provider Emergency Medicine; PCP Student in an Organized Health Care Education/Training Program
DX: R03.0 Elevated blood-pressure reading, without diagnosis of hypertension (principal); R07.9 Chest pain, unspecified
CPT/HCPCS: 36415; 80053; 85025; 93005; 99283; 99284

== ENCOUNTER → 2024-07-07 08:52 | Outpatient (BNV) | payer OTHER, SELFPAY | PROVIDERS: Emergency Provider Emergency Medicine; PCP Student in an Organized Health Care Education/Training Program; Visit Provider Internal Medicine Cardiovascular Disease | DX: R07.9 Chest pain, unspecified (principal); I44.0 Atrioventricular block, first degree; R94.31 Abnormal electrocardiogram [ECG] [EKG] | CPT/HCPCS: 93010 ==